=== PATIENT | female | born 1955 | race Caucasian/White ===

== ENCOUNTER → 2019-03-21 | Outpatient (CLI) | payer BC ==
--- NOTE | 2019-03-21 20:22 | CONS ---
CONSULTATION DATE OF SERVICE: 03/21/2019 63-year-old lady has been evaluated in [facility] for possible obstructive sleep apnea-hypopnea syndrome. HISTORY OF PRESENT ILLNESS SLEEP WAKE EVALUATION: The patient works at night 2 days on 2 days off. SLEEP SCHEDULE: Working days she sleeps from 8 a.m. until 3:30 pm and on days off, she sleeps from 11 p.m. until around 6 a.m. FALLING ASLEEP: Usually no problem with falling asleep. No TV in bedroom. DURING SLEEP: She sleeps on the side position presently by herself and wakes up from sleep up to 6 times with nocturia. DURING THE DAY/SLEEP WAKE EVALUATION: In the morning, she wakes up tired, has difficulties to pay attention, has problems with concentration, depression. [place] Sleepiness Scale is 8. PAST MEDICAL HISTORY: Positive for hypertension, diabetes, hyperlipidemia, allergies, acid reflux, low back arthritis, spinal stenosis. PAST SURGICAL HISTORY: Total hysterectomy, surgery for bladder CA, cholecystectomy, surgery on mass on left mastoid secondary to ear infection about 5 years ago. MEDICATIONS: Lantus, metformin, pravastatin, losartan, hydrochlorothiazide, levothyroxine, Claritin, multivitamins, Prilosec, glucosamine chondroitin, Motrin on p.r.n. basis. SOCIAL HISTORY: Positive for smoking about a 1 pack a day for 20 years, quit 20 years ago. Alcohol consumption none at the present time. FAMILY HISTORY: Hypertension, heart problems, hyperlipidemia, arthritis, cancer, emphysema, lung problems, bronchitis, thyroid problems, diabetes, acid reflux. REVIEW OF SYSTEMS: Multiple awakenings from sleep, sometimes tiredness and sleepiness during the day. Swelling of the legs. PHYSICAL EXAM: A pleasant lady without distress. BP 133/75, HR 89, RR 16, height 5 feet 5 inches, weight 273 pounds. Body mass index 45.4, temperature 98.1, oxygen saturation at room air 93%. OROPHARYNX: Extremely low position of soft palate. Mallampati 4. Wide neck 17-1/3 inches in circumference. Neck Supple, no JVD. Thyroid is not palpable. LUNGS Clear to percussion and to auscultation. Good air exchange. No wheezing or rhonchi. HEART S1, S2 regular. No murmurs, gallops, or rubs. ABDOMEN: Obese. Soft and nontender. Bowel sounds are present. No organomegaly appreciated. EXTREMITIES: 2+ bilateral ankle edema. No clubbing or cyanosis. SIPHON OPERATOR Awake, alert, and oriented X3. Cranial nerves 2 to 7 intact. There is no fasciculation or atrophy. noted. No focal deficits observed. IMPRESSION: 1. Multiple awakenings from sleep up to 6 times with nocturia. Extremely low position of soft palate. A wide neck, episodes of sleepiness, obstructive sleep apnea- hypopnea syndrome. 2. Obesity, body mass index 45.4. 3. Hypertension. 4. Diabetes mellitus. 5. Hyperlipidemia. 6. Allergies to dust and ragweed. 7. Acid reflux. 8. Low back arthritis. 9. History of spinal stenosis. 10.Status post total hysterectomy. 11.History of bladder CA treated surgically. 12.Status post cholecystectomy. 13.History of ear infection on the left side with surgical treatment including resection of mastoid about 5 years ago. 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 PLAN: 1. Polysomnography for evaluation of patient's breathing during sleep. 2. CPAP/BiPAP titration if sleep study confirms obstructive sleep apnea-hypopnea syndrome. 3. Preferable position during sleep on the side. 4. No driving if patient feels any sleepiness. 5. I will see patient for follow up visit to explain results of testing and following plan. Thank you very much for allowing me to participate in management of your patient. Sincerely, Rohan Simmons MD, PhD, FAASM Diplomat of [employer] Security Developer of [facility] [place] MMODL / TERESITAN: [id number] /
== END | disposition home or self-care (01) ==
LOC: SLEEP 13:41
PROVIDERS: ATTEND Internal Medicine
DX: G47.33 Obstructive sleep apnea (adult) (pediatric) (principal); E66.9 Obesity, unspecified; I10 Essential (primary) hypertension; E11.9 Type 2 diabetes mellitus without complications; E78.5 Hyperlipidemia, unspecified; K21.9 Gastro-esophageal reflux disease without esophagitis; M47.816 Spondylosis without myelopathy or radiculopathy, lumbar region; Z68.42 Body mass index [BMI] 45.0-49.9, adult; Z85.51 Personal history of malignant neoplasm of bladder; Z86.19 Personal history of other infectious and parasitic diseases; Z87.39 Personal history of other diseases of the musculoskeletal system and connective tissue; Z87.891 Personal history of nicotine dependence; Z90.710 Acquired absence of both cervix and uterus; Z90.49 Acquired absence of other specified parts of digestive tract; Z98.890 Other specified postprocedural states; Z79.4 Long term (current) use of insulin; Z79.899 Other long term (current) drug therapy; Z91.048 Other nonmedicinal substance allergy status
CPT/HCPCS: 99211

== ENCOUNTER → 2019-03-25 | Outpatient (CLI) | payer BC ==
--- NOTE | 2019-03-26 11:34 | BD ---
EXAMINATION TYPE: Axial Bone Density DATE OF EXAM: 03/25/2019 COMPARISON: NONE CLINICAL HISTORY: M 81.0 Height: 64.5 IN Weight: 270 LBD FRAX RISK QUESTIONS: Secondary Osteoporosis: 3. Menopause before 45: YES RISK FACTORS HISTORY OF: Family History of Osteoporosis: YES MOTHER Active: YES Postmenopausal woman: AGE 41 Take estrogen and/or progesterone medications: NOT NOW How long: TOOK CONTROL AGE 22-26 MEDICATIONS: Thyroid Medications: YES Which medication: Levothyroxine How Lon YEARS Additional Medications: PAIN MEDS FOR SPINAL STENOSIS,HIGH BLOOD PRESSURE, DIABETES MEDS, CHOLESTEROL MEDS, WATER PILL BLADDER CANCER WITH CHEMO EXAM MEASUREMENTS: Bone mineral densitometry was performed using the Burstly System. Bone mineral density as measured about the Lumbar spine is: ----- L1-L4(G/cm2): 1.275 T Score Values are as follows: ----- L2: 1.6 ----- L3: 1.1 ----- L4: 0.4 ----- L1-L4: 0.8 Bone mineral density BASELINE Bone mineral density about the R hip (g/cm2): 1.079 Bone mineral density about the L hip (g/cm2): 1.132 T Score values are as follows: -----R Neck: 0.3 -----L Neck: 0.7 -----R Total: 1.2 -----L Total: 0.9 Bone mineral density BASELINE IMPRESSION: Normal (Values between +1 and -1 indicate normal bone mass). Consider repeating this study in 5 year s or sooner if there is some new clinical indication. NOTE: T-SCORE=SD OF THE YOUNG ADULT MEAN.
--- NOTE | 2019-03-26 13:27 | MM ---
Reason for exam: screening (asymptomatic). Last mammogram was performed 3 years and 8 months ago. History: Patient is postmenopausal and has history of other cancer at age 53. Family history of breast cancer in maternal aunt. Took hormonal contraceptives for 3 years. Physical Findings: A clinical breast exam by your physician is recommended on an annual basis and results should be correlated with mammographic findings. MG 3D Screening Mammo W/Cad Bilateral CC and MLO view(s) were taken. Prior study comparison: July 16, 2015, mammogram. There are scattered fibroglandular densities. Benign appearing vascular bilateral calcifications. No suspicious abnormality. No significant changes when compared with prior studies. ASSESSMENT: Benign, BI-RAD 2 RECOMMENDATION: Routine screening mammogram of both breasts in 1 year.
== END | disposition home or self-care (01) ==
LOC: RADMAMWWP 15:22
PROVIDERS: ATTEND Family Medicine
DX: Z12.31 Encounter for screening mammogram for malignant neoplasm of breast (principal); M81.0 Age-related osteoporosis without current pathological fracture
CPT/HCPCS: 77063; 77067; 77080

== ENCOUNTER → 2019-08-01 | Outpatient (CLI) | payer BC ==
--- NOTE | 2019-08-01 19:49 | PN ---
PROGRESS NOTE DATE OF SERVICE: 08/01/2019 This patient is a 63-year-old lady who has been followed in the sleep center for treatment of obstructive sleep apnea-hypopnea syndrome. Recently the patient had a polysomnogram which showed severe sleep apnea and subsequent CPAP titration, when her respiration was improved. Subsequently I ordered for her a CPAP unit. Today is her first visit after starting to use her CPAP equipment. She was able to use CPAP equipment during the night. She sleeps better with the machine. She feels better during the day, but sometimes her mask is moving out. [place] Sleepiness Scale today is 2 only. I checked her CPAP unit. Range of the pressure is 5 to 12, average pressure 11.4. Leak is very high, 52. With that, apnea-hypopnea index is 6.1. MEDICATIONS: 1. Lantus. 2. Metformin. 3. Pravastatin. 4. Losartan/hydrochlorothiazide. 5. Levothyroxine. 6. Claritin. 7. Prilosec. 8. Glucosamine/chondroitin. 9. Multivitamin. 10.Motrin as needed. PHYSICAL EXAMINATION: GENERAL: A pleasant patient in no distress. VITAL SIGNS: BP 160/79, HR 86, RR 16, weight 288.6, temperature 97.4, oxygen saturation at room air 96%. HEENT: PERRLA, EOMI. Evaluation of oropharynx showed tongue protrudes midline. Extremely low position of soft palate. Mallampati IV. NECK: Supple. No JVD. Thyroid is not palpable. LUNGS: Clear to percussion and to auscultation. Good air exchange. No wheezing or rhonchi. HEART: S1, S2 regular. No murmurs, gallops or rubs. ABDOMEN: Slightly obese. EXTREMITIES: No clubbing or cyanosis. ANCHOR TACKER: Awake, alert, and oriented X3. Cranial nerves 2 to 7 intact. There is no fasciculation or atrophy. noted. No focal deficits observed. IMPRESSION: 1. Severe obstructive sleep apnea-hypopnea syndrome; apnea-hypopnea index 44.1 with oxygen desaturation to extremely low level at 63.6%. Patient has demonstrated great compliance with treatment, benefitting from treatment. Apnea-hypopnea index is slightly above 5. 2. Obesity. 3. Hypertension. 4. Diabetes mellitus. 5. Hyperlipidemia. 6. Multiple allergies. 7. Acid reflux. 8. Low back arthritis. 9. History of spinal stenosis. 10.Status post total hysterectomy. 11.History of bladder carcinoma, treated surgically. 12.Status post cholecystectomy. 13.History of ear infection with treatment, including infection of mastoid about 5 years ago. 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 PLAN: 1. Patient will continue to use CPAP equipment every night for the whole night. 2. I will increase the maximal range of pressure to 13. 3. Will try to use a chin strap. I believe the patient may have more leaks when she starts to open her mouth during sleep. 4. Losing weight. 5. No driving if feeling any sleepiness. Thank you very much for allowing me to participate in the management of your patient. Sincerely, Rohan Simmons MD, PhD, FAASM Diplomat of [employer] District Administrator of [facility] [place] MMODL / IJN: [id number] /
== END | disposition home or self-care (01) ==
LOC: SLEEP 15:21
PROVIDERS: ATTEND Internal Medicine
DX: G47.33 Obstructive sleep apnea (adult) (pediatric) (principal); E66.9 Obesity, unspecified; I10 Essential (primary) hypertension; E11.9 Type 2 diabetes mellitus without complications; E78.5 Hyperlipidemia, unspecified; T78.49XA Other allergy, initial encounter; K21.9 Gastro-esophageal reflux disease without esophagitis; M19.90 Unspecified osteoarthritis, unspecified site; Z86.69 Personal history of other diseases of the nervous system and sense organs; Z90.710 Acquired absence of both cervix and uterus; Z85.51 Personal history of malignant neoplasm of bladder; Z98.890 Other specified postprocedural states; Z90.49 Acquired absence of other specified parts of digestive tract; Z99.89 Dependence on other enabling machines and devices; Z79.4 Long term (current) use of insulin; Z79.890 Hormone replacement therapy; Z79.1 Long term (current) use of non-steroidal anti-inflammatories (NSAID); Z79.899 Other long term (current) drug therapy

== ENCOUNTER → 2019-10-17 | Outpatient (CLI) | payer MEDICARE, OTHER ==
--- NOTE | 2019-10-17 15:57 | PN ---
PROGRESS NOTE DATE OF SERVICE: 10/17/2019 This patient is a 64-year-old lady who has been followed in Sleep Center for treatment of obstructive sleep apnea-hypopnea syndrome. Patient continues to use her CPAP equipment every night. Sometimes she still has a leak from her mask. Otherwise, she sleeps well with the machine. No snoring. [place] Sleepiness Scale today is 4. I checked her CPAP unit. Range of the pressure is 5 to 13, average pressure 12 cm of water. Usage for the last month is 30/30 nights and 26/30 nights for more than 4 hours with average usage 5.8 hours per night, which is good compliance. Leak is quite high at 55 L/minute. Apnea-hypopnea index is 5.9, which is practically normal. MEDICATIONS: Lantus, metformin, losartan/hydrochlorothiazide, pravastatin, levothyroxine, Claritin, Prilosec, glucosamine, glucosamine/chondroitin, multivitamins, Motrin if needed. PHYSICAL EXAMINATION: GENERAL: A pleasant patient in no distress. VITAL SIGNS: BP 148/82, HR 86, RR 16. Height 5 feet 5 inches, weight 286 pounds, which is 2 pounds less than during last visit. Body mass index 47.7. Temperature 97.8, oxygen saturation at room air 96%. HEENT: PERRLA, EOMI. Evaluation of oropharynx showed tongue protrudes midline. Extremely low position of soft palate. Mallampati IV. NECK: Supple. No JVD. Thyroid is not palpable. LUNGS: Clear to percussion and to auscultation. Good air exchange. No wheezing or rhonchi. HEART: S1, S2 regular. No murmurs, gallops or rubs. ABDOMEN: Obese. EXTREMITIES: No clubbing or cyanosis. BULL RIDER: Awake, alert, and oriented X3. Cranial nerves 2 to 7 intact. There is no fasciculation or atrophy. noted. No focal deficits observed. IMPRESSION: 1. Severe obstructive sleep apnea-hypopnea syndrome. The patient demonstrated great compliance with treatment, benefitting from treatment. 2. Hypertension. 3. Obesity. 4. Diabetes mellitus. 5. Hyperlipidemia. 6. Multiple allergies. 7. Acid reflux. 8. Arthritis. 9. History of spinal stenosis. 10.Status post total hysterectomy. 11.History of bladder carcinoma, treated surgically. 12.Status post cholecystectomy. 13.History of ear infection, including infection of mastoid 5 years ago. 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 PLAN: 1. Patient will continue to use CPAP equipment every night for the whole night. 2. Losing weight. 3. Sleep hygiene with regular time in bed for at least 7-1/2 hours. 4. No driving if feeling any sleepiness. 5. I will maintain all necessary prescriptions for CPAP supplies, including mask, tube, filters. Thank you very much for allowing me to participate in the management of your patient. Sincerely, Rohan Simmons MD, PhD, FAASM Diplomat of [place] [employer] [place] [employer] Set Illustrator of [facility] [place] MMODL / IJN: [id number] /
== END | disposition home or self-care (01) ==
LOC: SLEEP 14:23
PROVIDERS: ATTEND Internal Medicine
DX: G47.33 Obstructive sleep apnea (adult) (pediatric) (principal); I10 Essential (primary) hypertension; E66.9 Obesity, unspecified; E11.9 Type 2 diabetes mellitus without complications; E78.5 Hyperlipidemia, unspecified; T78.49XA Other allergy, initial encounter; K21.9 Gastro-esophageal reflux disease without esophagitis; M19.90 Unspecified osteoarthritis, unspecified site; Z68.42 Body mass index [BMI] 45.0-49.9, adult; Z86.69 Personal history of other diseases of the nervous system and sense organs; Z90.710 Acquired absence of both cervix and uterus; Z85.51 Personal history of malignant neoplasm of bladder; Z98.890 Other specified postprocedural states; Z90.49 Acquired absence of other specified parts of digestive tract; Z99.89 Dependence on other enabling machines and devices; Z79.4 Long term (current) use of insulin; Z79.890 Hormone replacement therapy; Z79.1 Long term (current) use of non-steroidal anti-inflammatories (NSAID); Z79.899 Other long term (current) drug therapy

== ENCOUNTER → 2020-05-06 | Outpatient (CLI) | payer MEDICARE ==
--- NOTE | 2020-05-06 12:38 | XR ---
EXAMINATION TYPE: XR chest 2V DATE OF EXAM: 05/06/2020 COMPARISON: NONE HISTORY: Presurgical study. TECHNIQUE: Frontal and lateral views of the chest are obtained. FINDINGS: There is no focal air space opacity, pleural effusion, or pneumothorax seen. The cardiac silhouette size is mildly enlarged. The osseous structures are intact. Cholecystectomy clips noted on lateral view. Overlying bra strap. IMPRESSION: Mild cardiomegaly without acute pulmonary process.
[2020-05-06 13:55] LABS: Basophils # (A) 0.1 k/uL (0-0.2); Basophils % (A) 1 %; Eosinophils # (A) 0.2 k/uL (0-0.7); Eosinophils % (A) 2 %; HCT 40.6 % (34.0-46.0); HGB 12.7 gm/dL (11.4-16.0); Lymphocytes # (A) 2.3 k/uL (1.0-4.8); Lymphocytes % (A) 22 %; MCH 26.4 pg (25.0-35.0); MCHC 31.2 g/dL (31.0-37.0); MCV 84.5 fL (80.0-100.0); Monocytes # (A) 0.5 k/uL (0-1.0); Monocytes % (A) 5 %; Neutrophils # (A) 7.2 k/uL (1.3-7.7); Neutrophils % (A) 69 %; Platelet Count 228 k/uL (150-450); RBC 4.81 m/uL (3.80-5.40); RDW 14.9 % (11.5-15.5); WBC 10.5 k/uL (3.8-10.6)
[2020-05-06 14:04] LABS: African American GFR (CKD) >90 (>60 ml/min/1.73 sqM); Anion Gap 10 mmol/L; Blood Urea Nitrogen 15 mg/dL (7-17); Carbon Dioxide 29 mmol/L (22-30); Chloride 100 mmol/L (98-107); Glucose 158 mg/dL (74-99); Non-African American GFR(CKD) >90 (>60 ml/min/1.73 sqM); Sodium 139 mmol/L (137-145)
[2020-05-06 14:15] LABS: Appearance,Urine Clear (Clear); Bilirubin,Urine Negative (Negative); Blood,Urine Negative (Negative); Color,Urine Light Yellow; Glucose,Urine (UA) Negative (Negative); Ketones,Urine Negative (Negative); Leukocyte Esterase,Urine Negative (Negative); Nitrite,Urine Negative (Negative); Protein,Urine Negative (Negative); Specific Gravity,Urine 1.006 (1.001-1.035); Urobilinogen,Urine <2.0 mg/dL (<2.0)
[2020-05-06 14:38] LABS: INR 0.9 (<1.2); Prothrombin Time 9.7 sec (9.0-12.0)
== END | disposition home or self-care (01) ==
LOC: LABPAT 12:09
PROVIDERS: ATTEND Orthopaedic Surgery Orthopaedic Surgery of the Spine
DX: Z01.818 Encounter for other preprocedural examination (principal); M50.01 Cervical disc disorder with myelopathy, high cervical region; I51.7 Cardiomegaly
CPT/HCPCS: 71046; 80048; 81003; 85025; 85610; 85730; 93005

== ENCOUNTER 2020-05-13 08:37 | Observation (INO) | payer MEDICARE ==
[2020-05-07 11:22] VITALS: BMI 46.7
[~2020-05-13 08:37] MED LIST: DEXAMETHASONE SOD PHOSPHATE 10 MG/ML 1 ML VIAL IV ONE; HYDROmorphone 0.5 MG/0.5 ML SYRINGE IVP PRN; MIDAZOLAM 2 MG/2 ML VIAL IV PRN; ONDANSETRON 4 MG/2 ML VIAL IVP ONE; ceFAZolin 1,000 MG in SODIUM CHLORIDE 0.9% IRRIGATIO 1,000 ML IRRIGATION ONE; ceFAZolin 3 GM in SODIUM CHLORIDE 0.9% 100 ML IVPB ONE
[2020-05-13] MEDS ORDERED: ONDANSETRON 4 MG/2 ML VIAL ONE (09:01)
[2020-05-13 09:13] LABS: Glucose,Whole Blood 199 mg/dL (75-99)
[2020-05-13] MEDS: LACTATED RINGERS 1,000 ML IV SCH (09:17)
[2020-05-13] MEDS ORDERED: WATER FOR INJECTION, STERILE 10 ML VIAL IV ONE (10:17)
[2020-05-13] MEDS ORDERED: HYDROmorphone (PF) 1 MG/ML ONE (10:17)
[2020-05-13] MEDS ORDERED: DEXAMETHASONE SOD PHOSPHATE 10 MG/ML 1 ML VIAL ONE (10:17)
[2020-05-13] MEDS ORDERED: ePHEDrine SULFATE/0.9% NACL/PF 50 MG/5 ML SYRINGE IV ONE (10:17)
[2020-05-13] MEDS ORDERED: MIDAZOLAM 2 MG/2 ML VIAL ONE (10:17)
[2020-05-13] MEDS ORDERED: fentaNYL (PF) 50 MCG/ML 2 ML AMP ONE (10:17)
[2020-05-13] MEDS ORDERED: SUCCINYLCHOLINE CHLORIDE 100 MG/5 ML SYR IV ONE (10:17)
[2020-05-13] MEDS ORDERED: PROPOFOL 10 MG/ML 20 ML VIAL IV ONE (10:17)
[2020-05-13] MEDS ORDERED: LABETALOL 5 MG/ML VIAL MDV ONE (10:17)
[2020-05-13] MEDS ORDERED: LIDOCAINE 1% INJ 10MG/ML (20 ML MDV) ONE (10:17)
[2020-05-13] MEDS ORDERED: GELATIN SPONGE,ABSORB (LARGE) 1 EACH SPONGE TOPICAL ONE (10:27)
[2020-05-13] MEDS ORDERED: LIDOCAINE 0.5%-EPI 1:200,000 50 ML VIAL SQ ONE (10:27)
[2020-05-13] MEDS ORDERED: THROMBIN (BOVINE) 5,000 UNIT VIAL TOPICAL ONE (10:27)
[2020-05-13] MEDS ORDERED: LACTATED RINGERS 1,000 ML IV ONE (11:43)
[2020-05-13] MEDS ORDERED: HYDROmorphone 1 MG/ML 1 ML SYRINGE IVP PRN (12:59)
[2020-05-13] MEDS ORDERED: HYDROmorphone 0.5 MG/0.5 ML SYRINGE IVP PRN (12:59)
[2020-05-13] MEDS ORDERED: BENZOCAINE/MENTHOL LOZENG 1 EACH LOZENGE MUCOUS MEM PRN (12:59)
[2020-05-13] MEDS ORDERED: ONDANSETRON 4 MG/2 ML VIAL IVP PRN (13:00)
[2020-05-13] MEDS ORDERED: ACETAMINOPHEN TAB 325 MG TAB PO PRN (13:00)
--- NOTE | 2020-05-13 13:07 | P.OP ---
Date of Procedure: 05/13/20 Preoperative Diagnosis: Cervical myelopathy, myelomalacia cervical spine, herniated nucleus pulposis C4 5 C5 6 C6 7, cervical stenosis C4 5 C5 6 C6 7, degenerative disc disease, neck pain, upper extremity neuropathy, upper extremity weakness Postoperative Diagnosis: same Anesthesia: GETA Pathology: none sent Condition: stable Disposition: PACU Description of Procedure: BRIEF OPERATIVE NOTE Preoperative Diagnosis:Cervical myelopathy, myelomalacia cervical spine, herniated nucleus pulposis C4 5 C5 6 C6 7, cervical stenosis C4 5 C5 6 C6 7, degenerative disc disease, neck pain, upper extremity neuropathy, upper extremity weakness Postoperative Diagnosis:Cervical myelopathy, myelomalacia cervical spine, herniated nucleus pulposis C4 5 C5 6 C6 7, cervical stenosis C4 5 C5 6 C6 7, degenerative disc disease, neck pain, upper extremity neuropathy, upper extremity weakness Procedure: Anterior cervical decompression with discectomy and fusionC4 5 C5 6 C6 7 Placement of interbody graftC4 5 C5 6 C6 7 Application of anterior cervical plateC4 5 C5 6 C6 7 Surgeon: Dr. Potts Pallet Assembler: Tad Portillo is present throughout the entire the case persistence during positioning, dissection, exposure, visualization, and all crucial elements of the case as well as closure. Anesthesia: General anesthesia Estimated blood loss:proximately 75 mL Complications: None apparent Components implanted:K2M [place] anterior cervical plate system with screws and Vikos interbody allograft bone graft with 1 mL of DBX bone putty to supplemental bone graft Disposition: To recovery room in good stable condition. OPERATIVE INDICATIONS The patient has had long-standing issues in their neck and upper extremities. the patient has been having severe worsening of her symptoms over the past few months. Patient was found have severe cervical stenosis and evidence of myelomalacia and myelopathy. The patient has been through conservative treatment. the patient was having worsening her symptoms despite conservative care and we felt that surgery would give her the best option to stop the progression of her myelopathy and if her chance of making improvement with her neurologic function. We discussed various treatment options including surgery, and the patient wishes to proceed with surgery We discussed the risk, patient's alternatives and benefits of surgery including but not limited to, risk of bleeding risk of infection, risk of need for further surgery, risk of decreased, loss of motion, muscle function, malunion nonunion, hardware failure, nerve damage, paralysis, heart attack, and . OPERATIVE SUMMARY After discussing all the risks, patient alternatives and benefits at length, the patient elected to proceed with surgical intervention, signed informed consent, and presented for their procedure. The patient was seen and examined in the preoperative holding area and the surgical site was marked. The patient was given antibiotics and brought to the operating room. The patient was positioned on the operating room table in a supine position being careful to pad any bony prominences and pressure points. The patient was sedated and intubated by anesthesia in standard fashion. Once the airway and C- spine were stabilized the patient's arms were padded and tucked at her side, with her shoulders gently taped. The head was placed in a donut pad with the neck in good neutral alignment and position. We were careful to maintain the patient's cervical spine and good neutral alignment and position throughout. The patient was prepped and draped in a normal standard fashion. An appropriate timeout and keystone protocol performed. We were able to proceed with the surgery. The local wound area was infiltrated with local anesthetic. An incision was made transversely approximately 2-1/2 cm over the appropriate levelsat C5 6. Dissection was taken down subcutaneously to the level of the platysma which was split in line with its fibers. Dissection was taken with a carotid approach, with the trachea and esophagus medial and the carotid sheath laterally. We dissected down to the anterior surface of the vertebral bodies. Intraoperative x-ray was taken which showed a marker at the appropriate levelat C4 5. With the appropriate level positively confirmed, we were able to proceed with discectomy at the appropriate levels. starting at C4 5 and exposing C5 6 and C6 7.All of the operative levels were exposed appropriately. The patient had all their twitches back, and there was no evidence of recurrent laryngeal issue. The wound was copiously irrigated and suctioned dry as had been done periodically throughout the case. At the appropriate level/levels, starting at C4 5 and then removing the C5 6 and then to C6 7, I established an annulotomy with an 11 blade scalpel. A discectomy was performed with a combination of pituitary rongeurs, curettes, a high-speed bur, and Kerrison rongeurs. The posterior longitudinal ligament was taken down as were any posterior osteophytes. This gave good central and bilateral foraminal decompression. note was made at each level with significant disc degeneration disc protrusion posteriorly. I was able to take this down and get good central and bilateral foraminal decompression.There is no evidence of any dural tear or leak. The endplates were prepared with a high-speed bur. With the endplates in good parallel position, I was able to size for the appropriate size interbody graft. The wound was irrigated and suctioned dry the graft was prepared and malleted into position. It had good alignment and position with the anterior surface flush with the anterior surface of the vertebral bodies. This was done similarly the appropriate levels. With the grafts intact, I was able to measure and contour and appropriate sized plate. The plate was positioned at the midline over the appropriate levelsat C4 5 6 and 7. Screw holes were established with a hand drill and drill guide. Screws were placed in good alignment and position with excellent bony purchase. They were seated under the locking device. The construct was checked and found to be stable. Intraoperative x-ray was taken which showed good alignment and position of the implants at the appropriate levels. There was no evidence of any dural tear or leak. Good hemostasis was maintained. The wound was copiously irrigated and suctioned dry as had been done periodically throughout the case. The platysma was closed with absorbable suture. The subcutaneous tissue was closed. The subcuticular tissue was closed with absorbable suture. The wound was cleaned and dried and dressed appropriately. A soft cervical collar was placed appropriately. The patient was woken up by anesthesia, extubated, transferred back gently to their hospital bed and brought to the recovery room in good stable condition. The patient will be admitted to the hospital for appropriate postoperative care, medical management and monitoring. We will continue to follow them closely about the postoperative course.
[2020-05-13 13:33] LABS: Glucose,Whole Blood 178 mg/dL (75-99)
--- NOTE | 2020-05-13 13:51 | XR ---
Cervical spine HISTORY: Needle placement Single lateral view the cervical spine There is a needle present within the C4-5 disc space, is associated loss of disc height and spondylos is. Endotracheal tube noted incidentally. IMPRESSION: Orthopedic localization
--- NOTE | 2020-05-13 14:14 | XR ---
Cervical spine HISTORY: Hardware placement Single lateral view of the cervical spine Patient is status post anterior cervical discectomy and fusion at C4-C7, intervertebral spacing block s are present. Lower cervical spine not well seen. Alignment appears stable as visualized. IMPRESSION: Orthopedic follow-up.
[2020-05-13] MEDS: SODIUM CHLORIDE 0.9% 1,000 ML IV SCH (15:56)
[2020-05-13] MEDS: HYDROcodone/APAP 5-325MG 1 EACH TAB PO PRN (16:22)
[2020-05-13 17:08] LABS: Glucose,Whole Blood 250 mg/dL (75-99)
[2020-05-13] MEDS: ceFAZolin 3 GM in SODIUM CHLORIDE 0.9% 100 ML IVPB SCH (17:38)
[2020-05-13] MEDS: metFORMIN 500 MG TAB PO SCH (17:38)
[2020-05-13] MEDS: INSULIN ASPART (NovoLOG) 100 UNIT/ML VIAL SQ SCH ×2 (17:38→21:36)
[2020-05-13] MEDS: SYMBICORT 80-4.5 MCG INHALER INHALATION SCH (20:34)
[2020-05-13 20:47] LABS: Glucose,Whole Blood 282 mg/dL (75-99)
[2020-05-13] MEDS: INSULIN DETEMIR (LEVEMIR) 100 UNIT/ML SYR SQ SCH (21:35)
[2020-05-13] MEDS: guaiFENesin 600 MG TABLET.ER PO SCH (21:39)
--- NOTE | 2020-05-13 22:01 | P.CONS ---
History of Present Illness - Reason for Consult Consult date: 05/13/20 Medical management Requesting physician: Radha Potts - Chief Complaint Anterior decompression and fusion of the C4/5/6/7, type 2 diabetes, hyperte - History of Present Illness 64-year-old female one of Dr. Napier patient with past medical history of mild COPD, hypertension, hyperlipidemia, history of bladder cancer and known to have history of severe spinal stenosis. Patient apparently has been having worsening balance and gait with multiple fall significant pain and discomfort in the neck area along with weakness in the right arm. Patient was seen Dr. Echavarria physiatry further workup including x-ray of the lumbar spine and MRI of the C-spine showed severe spinal stenosis of the cervical spine. Patient was referred to Dr. Potts and ended up going for anterior decompression and fusion of for cervical spine vertebrae. Surgery was successful, patient was admitted to the floor afterward her home meds were started patient is hemodynamically stable and feeling well pain is under control. Review of Systems CONSTITUTIONAL: Well-developed no acute respiratory distress. EYES: No icterus sclerae, no conjunctivitis. EARS, NOSE, MOUTH, THROAT, and FACE: No sore throat, lymphadenopathy, carotid bruits or deformity. RESPIRATORY: Mild shortness of breath no cough or wheezes. CARDIOVASCULAR: No CP or Palpitation, + PND, Orthopnea, no angina. GASTROINTESTINAL: No Abd pain, Nausea or vomiting, no Diarrhea or constipation, No GI Bleed, no distention or masses. GENITOURINARY: Negative for Hematuria or UTI, no kidney stones. INTEGUMENT/BREAST: Negative for any muscular injury with mild osteoarthritis.. HEMATOLOGIC/LYMPHATIC: Negative for bleed or purpura. MUSCULOSKELTAL: Generalized myalgia and arthralgia. NEURLOGICAL: No LOC, Sz or syncope, blurred vision dizziness or abnormality. Positive mild abnormal gait. BEHAVIORAL/PSYCH: Negative. ENDOCRINE: Negative. Past Medical History Past Medical History: Cancer, Diabetes Mellitus, GERD/Reflux, Hearing Disorder / Deafness, Hyperlipidemia, Hypertension, Osteoarthritis (OA), Sleep Apnea/CPAP/BIPAP, Thyroid Disorder Additional Past Medical History / Comment(s): states had shingles end of March 2020, lower back, hip, states "cleared up now" no current skin issues, hx bladder cancer, had tumors removed, and "chemo wash" hx. kidney stones, liver lesion-dr. monitoring, bulging discs, SOB w/activity, seasonal allergies, minimal hearing left ear, N/T tiffany legs, "legs give out", tiffany legs edema. History of Any Multi-Drug Resistant Organisms: MRSA Year Discovered:: 07/15/16 MDRO Source:: left ear Past Surgical History: Appendectomy, Cholecystectomy, Ear Surgery, Hysterectomy Additional Past Surgical History / Comment(s): cystoscopy, surg. on left mastoid due to infection, tubes in ears, anterior decompression and fusion of C4/5/6/7 Past Anesthesia/Blood Transfusion Reactions: Previous Problems w/ Anesthesia Additional Past Anesthesia/Blood Transfusion Reaction / Comm: combative w/anesthesia in past, has had trouble waking up in past Past Psychological History: No Psychological Hx Reported Smoking Status: Former smoker Past Alcohol Use History: None Reported Additional Past Alcohol Use History / Comment(s): quit smoking more than 20 yrs. ago, smoked 1ppd for 20 yrs. Past Drug Use History: None Reported - Past Family History Brother(s) Family Medical History: Cancer Additional Family Medical History / Comment(s): one brother lung, 2 brothers prostate Father Family Medical History: Cancer Additional Family Medical History / Comment(s): prostate Medications and Allergies Home Medications Medication Instructions Recorded Confirmed Type Insulin Glargine [Lantus] 65 unit SQ BID 03/07/16 05/13/20 History Levothyroxine Sodium [Synthroid] 150 mcg PO DAILY 03/07/16 05/13/20 History Multivit with Calcium,Iron,Min 1 each PO DAILY 03/07/16 05/13/20 History [Women's Daily Multivitamin] Pravastatin Sodium [Pravachol] 20 mg PO DAILY 03/07/16 05/13/20 History metFORMIN HCL [Glucophage] 1,000 mg PO BID 03/07/16 05/13/20 History Aspirin [[place] Aspirin EC] 81 mg PO DAILY 05/07/20 05/13/20 History Ergocalciferol [Vitamin D2] 50,000 unit PO COLLAZO 05/07/20 05/13/20 History Fluticasone/Salmeterol [Advair 1 inhalation PO BID 05/07/20 05/13/20 History 250-50 Diskus] Furosemide [Lasix] 20 mg PO DAILY 05/07/20 05/13/20 History Ibuprofen 800 mg PO BID 05/07/20 05/13/20 History Loratadine [Claritin] 10 mg PO DAILY 05/07/20 05/13/20 History Losartan/Hydrochlorothiazide 1 tab PO DAILY 05/07/20 05/13/20 History [Losartan-Hctz 100-25 mg Tab] Omeprazole [PriLOSEC] 20 mg PO DAILY 05/07/20 05/13/20 History amLODIPine [Norvasc] 5 mg PO QAM 05/07/20 05/13/20 History guaiFENesin [Mucinex] 600 mg PO BID 05/07/20 05/13/20 History Allergies Allergy/AdvReac Type Severity Reaction Status Date / Time Sulfa (Sulfonamide Allergy Rash/Hives Verified 05/13/20 09:01 Antibiotics) erythromycin base AdvReac "spacey" Verified 05/13/20 09:01 Physical Exam Vitals: Vital Signs Temp Pulse Pulse Resp BP BP Pulse Ox 05/13/20 17:30 78 123/68 05/13/20 15:30 96.9 F L 80 18 163/75 96 05/13/20 14:50 78 18 155/70 94 L 05/13/20 14:35 75 18 155/73 100 05/13/20 14:20 74 18 171/100 99 05/13/20 14:05 74 16 138/63 100 05/13/20 13:50 74 16 130/55 94 L 05/13/20 13:35 70 18 125/51 94 L 05/13/20 13:24 97 F L 71 16 147/65 91 L 05/13/20 08:55 97 F L 91 16 192/76 98 Intake and Output 05/13/20 05/13/20 05/13/20 06:59 14:59 22:59 Intake Total 1501 300 Output Total 175 Balance 1326 300 Intake: IV 1501 300 Output: Urine 100 Estimated Blood Loss 75 Other: Weight 132.1 kg General Appearance: Alert, cooperative, no distress, appears stated age. Neck HEENT: no lymphadenopathy, no thyroid enlargement, no carotid bruits. Cervical spine surgery in the right sided anterior approach no sign of bleeding or hematoma no swelling Lungs: Clear to auscultation without crackles or wheezes no rhonchi, no deformity. Chest Wall: Chest wall normal expansion with deep inspiration no tenderness and no deformity was found on exam, no costochondral pain or discomfort. Heart: Regular rate and rhythm, S1, S2 normal, no murmur, rub or gallop. Back: Symmetric, no curvature, ROM normal, no CVA tenderness. Abdomen: Soft, non-tender, bowel sounds active all four quadrants, no masses, no organomegaly. Extremities: normal, atraumatic, no cyanosis or edema. Pulses: 2+ and symmetric. Skin: Skin color, texture, tugor normal, no rashes or lesions. Neurologic: Alert oriented x3 cranial nerves II through XII intact, no motor d eficit, no abnormal balance or gait. Results Labs: Abnormal Lab Results - Last 24 Hours (Table) 05/13/20 05/13/20 05/13/20 Range/Units 09:10 13:31 17:06 POC Glucose (mg/dL) 199 H 178 H 250 H (75-99) mg/dL Assessment and Plan Assessment: 1 post anterior C-spine decompression and fusion: Stable post surgery resume home meds, watch patient hemodynamic status, we'll control patient's pain. 2 type 2 diabetes: Continue Accu-Chek with sliding scales coverage, continue patient on Lantus 65 units twice a day along with Glucophage 1000 mg twice a day. 3 hypertension: Remain on Norvasc 5 mg a day, losartan hydrochlorothiazide 100/25 mg daily. 4 hyperlipidemia: On Pravachol 20 mg a day. 5 hypothyroidism: Resume levothyroxine 150 g daily. 6 mild COPD: Remain on rescue inhaler along with Advair 250/50 Diskus 1 inhaler twice a day. 7 chronic edema: Remain on Lasix 20 mg a day. 8 pain management: Remain on Dilaudid 1 mg every 4 hours as needed 9 GI prophylaxis: Continue patient on pantoprazole 40 mg a day. CODE STATUS: Full code. Dr. Potts thank you very much for the consult if I can be any further help to please let me know.
[2020-05-14] MEDS: ceFAZolin 3 GM in SODIUM CHLORIDE 0.9% 100 ML IVPB SCH (01:33)
[2020-05-14 05:01] VITALS: BP 132/68; RESP 18; TEMP 98.6
[2020-05-14] MEDS: HYDROcodone/APAP 5-325MG 1 EACH TAB PO PRN (05:07)
[2020-05-14] MEDS: SODIUM CHLORIDE 0.9% 1,000 ML IV SCH (05:08)
[2020-05-14] MEDS ORDERED: LEVOTHYROXINE 75 MCG TAB PO SCH (06:30)
[2020-05-14 07:04] LABS: Glucose,Whole Blood 130 mg/dL (75-99)
[2020-05-14] MEDS: SYMBICORT 80-4.5 MCG INHALER INHALATION SCH (07:24)
[2020-05-14] MEDS ORDERED: PANTOPRAZOLE 40 MG TABLET PO SCH (07:30)
[2020-05-14] MEDS: INSULIN ASPART (NovoLOG) 100 UNIT/ML VIAL SQ SCH ×2 (07:56→12:59)
[2020-05-14] MEDS: LACTATED RINGERS 1,000 ML IV SCH (07:57)
[2020-05-14] MEDS: INSULIN DETEMIR (LEVEMIR) 100 UNIT/ML SYR SQ SCH (07:58)
[2020-05-14] MEDS: metFORMIN 500 MG TAB PO SCH (07:59)
[2020-05-14] MEDS: guaiFENesin 600 MG TABLET.ER PO SCH (07:59)
[2020-05-14] MEDS ORDERED: amLODIPine 5 MG TAB PO SCH (09:00)
[2020-05-14] MEDS ORDERED: LOSARTAN-HCTZ 50-12.5 MG 1 EACH TAB PO SCH (09:00)
[2020-05-14] MEDS ORDERED: ASPIRIN 81 MG PO SCH (09:00)
[2020-05-14] MEDS ORDERED: FUROSEMIDE 20 MG TAB PO SCH (09:00)
[2020-05-14] MEDS ORDERED: SENNOSIDES-DOCUSATE SODIUM 1 EACH TAB PO SCH ×2 (09:00)
[2020-05-14] MEDS ORDERED: PRAVASTATIN SODIUM 20 MG TAB PO SCH (09:00)
[2020-05-14] MEDS ORDERED: MULTIVITAMINS, THERA 1 EACH TAB PO SCH (09:00)
[2020-05-14] MEDS ORDERED: LORATADINE 10 MG TAB PO SCH (09:00)
--- NOTE | 2020-05-14 09:56 | P.DS ---
Providers Date of admission: 05/13/20 23:22 Attending physician: Radha Potts Primary care physician: [facility] Course: The patient presented on the day of admission as per their operative note. She is a history of cervical myelopathy and severe cervical stenosis for which the underwent anterior cervical decompression with discectomy and fusion as per operative note. She says her hands are feeling better and she has been able to walk around better to 70 well. She still needing some a little bit of assistance when she walks around to hold onto furniture or her IV pole. Physical Exam The incision site is clean dry and intact. There is no erythema no drainage. There is no purulence no evidence of infection. She has some mild swelling and mild ecchymosis without any pressure. Her neck is soft and supple. Abdomen soft and nontender. Chest has good excursion with deep inspiration and expiration. The patient has active and passive range of motion intact at the upper and lower extremities. There is no acute change in neurologic status. She has good motion in her hands and fingers. Hospital Course Postoperative day #1 status post anterior cervical decompression with discectomy and fusion at C45 C5 6 C6 7 for her severe cervical stenosis with cervical myelopathy. Thus far she has been happy with results. She is able to tolerate soft diet and she is ambulating inside the room. She's voided and has had a bowel movement. The patient has been making good progress postoperatively. They have completed the prophylactic antibiotics without any signs or symptoms of infection. The patient has been able to advance their diet, and is tolerating diet adequately. The pain was initially controlled with IV medications and is now controlled appropriately with oral medications. The patient has been able to increase thei r mobilization. The patient has progressed appropriately. I think they are in good stable condition for discharge today. They will be sent home with appropriate prescriptions. I answered their questions to the best of my ability in a language that they can understand and they are agreeable with the plan. They will follow up as directed in approximately 2 weeks or sooner if she is having problems. Patient Condition at Discharge: Good Plan - Discharge Summary Discharge Rx Participant: No New Discharge Prescriptions: New Benzocaine/Menthol Lozeng [Cepacol lozenge] 1 each MUCOUS MEM Q4HR PRN lozenge PRN Reason: Sore Throat HYDROcodone/APAP 5-325MG [[place] 5] 1 each PO Q4HR PRN #42 tab PRN Reason: Pain Continue Levothyroxine Sodium [Synthroid] 150 mcg PO DAILY metFORMIN HCL [Glucophage] 1,000 mg PO BID Pravastatin Sodium [Pravachol] 20 mg PO DAILY Insulin Glargine [Lantus] 65 unit SQ BID Multivit with Calcium,Iron,Min [Women's Daily Multivitamin] 1 each PO DAILY Furosemide [Lasix] 20 mg PO DAILY Ergocalciferol [Vitamin D2 (DRISDOL)] 50,000 unit PO COLLAZO amLODIPine [Norvasc] 5 mg PO QAM Loratadine [Claritin] 10 mg PO DAILY Fluticasone/Salmeterol [Advair 250-50 Diskus] 1 inhalation PO BID guaiFENesin [Mucinex] 600 mg PO BID Omeprazole [PriLOSEC] 20 mg PO DAILY Losartan/Hydrochlorothiazide [Losartan-Hctz 100-25 mg Tab] 1 tab PO DAILY Ibuprofen 800 mg PO BID Aspirin [[place] Aspirin EC] 81 mg PO DAILY Discharge Medication List Insulin Glargine [Lantus] 65 unit SQ BID 03/07/16 [History] Levothyroxine Sodium [Synthroid] 150 mcg PO DAILY 03/07/16 [History] Multivit with Calcium,Iron,Min [Women's Daily Multivitamin] 1 each PO DAILY 03/07/16 [History] Pravastatin Sodium [Pravachol] 20 mg PO DAILY 03/07/16 [History] metFORMIN HCL [Glucophage] 1,000 mg PO BID 03/07/16 [History] Aspirin [[place] Aspirin EC] 81 mg PO DAILY 05/07/20 [History] Ergocalciferol [Vitamin D2 (DRISDOL)] 50,000 unit PO COLLAZO 05/07/20 [History] Fluticasone/Salmeterol [Advair 250-50 Diskus] 1 inhalation PO BID 05/07/20 [History] Furosemide [Lasix] 20 mg PO DAILY 05/07/20 [History] Ibuprofen 800 mg PO BID 05/07/20 [History] Loratadine [Claritin] 10 mg PO DAILY 05/07/20 [History] Losartan/Hydrochlorothiazide [Losartan-Hctz 100-25 mg Tab] 1 tab PO DAILY 05/07/20 [History] Omeprazole [PriLOSEC] 20 mg PO DAILY 05/07/20 [History] amLODIPine [Norvasc] 5 mg PO QAM 05/07/20 [History] guaiFENesin [Mucinex] 600 mg PO BID 05/07/20 [History] Benzocaine/Menthol Lozeng [Cepacol lozenge] 1 each MUCOUS MEM Q4HR PRN lozenge 05/14/20 [Rx] HYDROcodone/APAP 5-325MG [[place] 5] 1 each PO Q4HR PRN #42 tab 05/14/20 [Rx] Follow up Appointment(s)/Referral(s): Reinier Napier DO [Primary Care Provider] - 1 Week Radha Potts DO [Doctor of Osteopathic Medicine] - 2 Weeks Activity/Diet/Wound Care/Special Instructions: Keep site clean. May shower with waterproof Tegaderm intact. Do not soak in a tub. After 72 hours postoperatively, patient May remove dressing and then may shower with area uncovered. Leave Steri-Strips intact and allow them to fray off on their own. May ambulate as tolerated. Avoid heavy or rigorous activity. No repetitive bending twisting or lifting. No overhead work. Discharge Disposition: HOME SELF-CARE
[2020-05-14 10:34] VITALS: PULSE 80
[2020-05-14 11:15] LABS: Glucose,Whole Blood 137 mg/dL (75-99)
--- NOTE | 2020-05-14 13:30 | P.PN ---
Subjective Progress Note Date: 05/14/20 64-year-old female one of Dr. Napier patient with past medical history of mild COPD, hypertension, hyperlipidemia, history of bladder cancer and known to have history of severe spinal stenosis. Patient apparently has been having worsening balance and gait with multiple fall significant pain and discomfort in the neck area along with weakness in the right arm. Patient was seen Dr. Romero physiatry further workup including x-ray of the lumbar spine and MRI of the C-spine showed severe spinal stenosis of the cervical spine. Patient was referred to Dr. Potts and ended up going for anterior decompression and fusion of for cervical spine vertebrae. Surgery was successful, patient was admitted to the floor afterward her home meds were started patient is hemodynamically stable and feeling well pain is under control. 05/14: The patient states that she has been up to the bathroom she feels weak and shaky in her lower extremities. She does not feel stronger at this point in her legs. Her pain is currently controlled. She has been afebrile, heart rate 85, blood pressure 132/60, pulse ox 91% on room air. Patient expects to be discharged home later today. Medication reconciliation reviewed and patient will follow-up with Dr. Napier. Review of Systems CONSTITUTIONAL: Well-developed no acute respiratory distress. Denies fever, denies chills. EYES: No icterus sclerae, no conjunctivitis. EARS, NOSE, MOUTH, THROAT, and FACE: No sore throat, lymphadenopathy, carotid bruits or deformity. RESPIRATORY: Mild shortness of breath no cough or wheezes. CARDIOVASCULAR: No CP or Palpitation, + PND, Orthopnea, no angina. GASTROINTESTINAL: No Abd pain, Nausea or vomiting, no Diarrhea or constipation, No GI Bleed, no distention or masses. GENITOURINARY: Negative for Hematuria or UTI, no kidney stones. INTEGUMENT/BREAST: Negative for any muscular injury with mild osteoarthritis.. HEMATOLOGIC/LYMPHATIC: Negative for bleed or purpura. MUSCULOSKELTAL: Generalized myalgia and arthralgia. NEURLOGICAL: No LOC, Sz or syncope, blurred vision dizziness or abnormality. Positive mild abnormal gait. BEHAVIORAL/PSYCH: Negative. ENDOCRINE: Negative. Physical examination General Appearance: Alert, cooperative, no distress, appears stated age. Neck HEENT: no lymphadenopathy, no thyroid enlargement, no carotid bruits. Cervical spine surgery in the right sided anterior approach no sign of bleeding or hematoma no swelling. Soft cervical collar in place. Lungs: Clear to auscultation without crackles or wheezes no rhonchi, no deformity. Chest Wall: Chest wall normal expansion with deep inspiration no tenderness and no deformity was found on exam, no costochondral pain or discomfort. Heart: Regular rate and rhythm, S1, S2 normal, no murmur, rub or gallop. Back: Symmetric, no curvature, ROM normal, no CVA tenderness. Abdomen: Soft, non-tender, bowel sounds active all four quadrants, no masses, no organomegaly. Extremities: normal, atraumatic, no cyanosis or edema. Pulses: 2+ and symmetric. Skin: Skin color, texture, tugor normal, no rashes or lesions. Neurologic: Alert oriented x3 cranial nerves II through XII intact, no motor deficit, no abnormal balance or gait. Assessment and plan 1 post anterior C-spine decompression and fusion: Stable post surgery resume home meds, watch patient hemodynamic status. 2 type 2 diabetes: Continue Accu-Chek with sliding scales coverage, continue patient on Lantus 65 units twice a day along with Glucophage 1000 mg twice a day. 3 hypertension: Remain on Norvasc 5 mg a day, losartan hydrochlorothiazide 100/25 mg daily. 4 hyperlipidemia: On Pravachol 20 mg a day. 5 hypothyroidism: Resume levothyroxine 150 g daily. 6 mild COPD: Remain on rescue inhaler along with Advair 250/50 Diskus 1 inhaler twice a day. 7 chronic edema: Remain on Lasix 20 mg a day. 8 pain management: Remain on Dilaudid 1 mg every 4 hours as needed 9 GI prophylaxis: Continue patient on pantoprazole 40 mg a day. CODE STATUS: Full code. Dr. Potts thank you very much for the consult if I can be any further help to please let me know. Discharge plan: Home Impression and plan of care have been directed as dictated by the signing physician. Sophy Schreiber nurse practitioner acting as scribe for signing physician. Objective - Vital Signs Vital signs: Vital Signs Temp 98.6 F 05/14/20 05:00 Pulse 85 05/14/20 05:00 Resp 18 05/14/20 05:00 BP 132/68 05/14/20 05:00 Pulse Ox 91 L 05/14/20 05:00 Intake & Output 05/13/20 05/14/20 05/14/20 18:59 06:59 18:59 Intake Total 1801 240 Output Total 175 Balance 1626 240 Weight 132.1 kg Intake: IV 1801 Oral 240 Output: Urine 100 Estimated Blood Loss 75 Other: # Voids 2 - Labs Labs: Abnormal Lab Results - Last 24 Hours (Table) 05/13/20 05/13/20 05/13/20 Range/Units 09:10 13:31 17:06 POC Glucose (mg/dL) 199 H 178 H 250 H (75-99) mg/dL 05/13/20 05/14/20 Range/Units 20:45 07:03 POC Glucose (mg/dL) 282 H 130 H (75-99) mg/dL
[2020-05-14 18:08] LABS: Hemoglobin A1C 10.5 % (4.0-6.0)
[2020-05-17] MEDS ORDERED: ERGOCALCIFEROL 50,000 UNIT CAP PO SCH (12:00)
== END 2020-05-14 14:51 | disposition home or self-care (01) ==
LOC: OR 08:37 → 5NMEDONC 14:05 → OR 23:41
PROVIDERS: ADMIT Orthopaedic Surgery Orthopaedic Surgery of the Spine; ATTEND Orthopaedic Surgery Orthopaedic Surgery of the Spine
DX: M48.02 Spinal stenosis, cervical region (principal); M50.021 Cervical disc disorder at C4-C5 level with myelopathy; G95.89 Other specified diseases of spinal cord; Z91.81 History of falling; M47.816 Spondylosis without myelopathy or radiculopathy, lumbar region; G62.9 Polyneuropathy, unspecified; I10 Essential (primary) hypertension; E03.9 Hypothyroidism, unspecified; R26.81 Unsteadiness on feet; H91.90 Unspecified hearing loss, unspecified ear; Z85.51 Personal history of malignant neoplasm of bladder; E11.9 Type 2 diabetes mellitus without complications; E78.5 Hyperlipidemia, unspecified; K21.9 Gastro-esophageal reflux disease without esophagitis; Z87.442 Personal history of urinary calculi; Z90.49 Acquired absence of other specified parts of digestive tract; Z90.710 Acquired absence of both cervix and uterus; Z98.890 Other specified postprocedural states; Z87.891 Personal history of nicotine dependence; Z79.82 Long term (current) use of aspirin; Z79.890 Hormone replacement therapy; Z79.4 Long term (current) use of insulin; Z79.51 Long term (current) use of inhaled steroids; Z79.899 Other long term (current) drug therapy; Z88.1 Allergy status to other antibiotic agents; Z88.2 Allergy status to sulfonamides
CPT/HCPCS: 94660; 94640 ×2; 86900; 86901; 86850; 83036; 72020; 22551; 22552 ×2; 20931; G0378 ×2; C1713 ×2; C1762 ×2; J2250; J1100; J0690 ×3; J2405; J2001; J3010; J1170; J0330; J2704

== ENCOUNTER → 2020-09-21 | Outpatient (CLI) | payer MEDICARE ==
[2020-09-21 16:49] LABS: Hemoglobin A1C 7.4 % (4.0-6.0)
[2020-09-21 17:14] LABS: African American GFR (CKD) 105.4 (60.0-200.0); Albumin 4.4 g/dL (3.80-4.90); Albumin/Globulin Ratio 2.1 (1.60-3.17); Anion Gap 9.3 mmol/L (4.00-12.00); BUN/Creat Ratio 17.14 Ratio (12.00-20.00); Calcium 9.7 mg/dL (8.7-10.3); Carbon Dioxide 29.7 mmol/L (21.6-31.8); Chol/HDL Ratio 3.88; Globulin 2.1 g/dL (1.6-3.3); LDL Cholesterol,Calculated 88.4 mg/dL (0.0-131.0); Non-African American GFR(CKD) 90.9 (60.0-200.0); Potassium 3.7 mmol/L (3.5-5.5); Total Bilirubin 0.4 mg/dL (0.2-1.2); Total Protein 6.5 g/dL (6.2-8.2); VLDL Calculation 32.6 mg/dL (5.00-40.00)
== END | disposition home or self-care (01) ==
LOC: LABWHC1 09:48
PROVIDERS: ATTEND Internal Medicine Endocrinology, Diabetes & Metabolism
DX: E11.65 Type 2 diabetes mellitus with hyperglycemia (principal)
CPT/HCPCS: 36415; 80053; 80061; 82043; 82570; 83036; 84443

== ENCOUNTER → 2020-12-10 | Outpatient (CLI) | payer MEDICARE ==
--- NOTE | 2020-12-10 17:33 | SFUN ---
SLEEP CENTER FOLLOW UP NOTE DATE OF SERVICE: 12/10/2020 This is a 65-year-old lady who has been followed in Sleep Center for treatment of obstructive sleep apnea-hypopnea syndrome. The patient continue to use her CPAP equipment every night but has episodes of awakenings up to 3 times per night at the present time. Sometimes she feels that there is water in her mask. Sometimes in the morning when she wakes up, she feels that her nose is plugged up. [place] Sleepiness Scale today is 3, which is normal. The patient also explained that sometimes she fills half of the tank with water, and then there is no water in the morning in the chamber of the humidifier. I checked her CPAP unit. Range of the pressure is 5 to 13 with average pressure 11.6. Usage is 30/30 nights for more than 4 hours. Quite high leak at 52 L/minute. Apnea- hypopnea index is in normal range at 4.3. Humidifier is at the level of 2. MEDICATIONS: 1. Metformin 1000 mg twice a day. 2. Pravastatin 20 mg once a day. 3. Losartan 100/25 mg once a day. 4. Levothyroxine 150 mcg once a day. 5. Claritin 10 mg once a day. 6. Omeprazole 20 mg once a day. 7. Aspirin 81 mg once a day. 8. Advair 250/50 twice a day. 9. Amlodipine 5 mg twice a day. 10.Mucinex 600 mg twice a day. 11.Lasix 20 mg once a day. 12.Vitamin D 50,000 units once a month. 13.Glimepiride 4 mg once a day. PHYSICAL EXAMINATION: GENERAL: A pleasant patient in no distress. VITAL SIGNS: BP 176/71, HR 80, RR 16, height 5 feet 6 inches, weight 287.2, temperature 98.5, oxygen saturation at room air 97%. HEENT: PERRLA, EOMI. Evaluation of oropharynx showed tongue protrudes midline. Extremely low position of soft palate. Mallampati IV. NECK: Supple. No JVD. Thyroid is not palpable. LUNGS: Clear to percussion and to auscultation. Good air exchange. No wheezing or rhonchi. HEART: S1, S2 regular. No murmurs, gallops or rubs. ABDOMEN: Obese. EXTREMITIES: No clubbing or cyanosis. [place]: Awake, alert, and oriented X3. Cranial nerves 2 to 7 intact. There is no fasciculation or atrophy. noted. No focal deficits observed. IMPRESSION: 1. Obstructive sleep apnea-hypopnea syndrome. Patient demonstrated 100% compliance with treatment, benefitting from treatment. 2. Patient has some problems with humidity. Sometimes there is too much water in the mask. Sometimes I believe she feel dryness in the nose and there is no water in the humidifier. 3. Obesity. 4. Hypertension. 5. Diabetes mellitus. 6. Hyperlipidemia. 7. Multiple allergies. 8. Acid reflux. 9. Arthritis. 10.History of spinal stenosis. 11.Status post total hysterectomy. 12.History of bladder carcinoma, treated surgically. 13.Status post cholecystectomy. 14.History of ear infection, including infection of mastoid 5 years ago. 15.Status post neck surgery in May of 2020. PLAN: 1. I discussed extensively adjustments of humidifier position of the machine and tube during sleep. 2. Patient will continue to use PAP equipment every night for the whole night. 3. Sleep hygiene with regular time in bed for at least 7-1/2 to 8 hours. 4. Precautions related to driving. No driving if feeling sleepiness. 5. I will maintain all necessary prescription for PAP supplies including mask, tube, filters. 6. Watching weight. 7. Follow-up visit in 6 months or earlier if patient has any problems. Thank you very much for allowing me to participate in the management of your patient. Sincerely, Rohan Simmons MD, PhD, FAASM Diplomat of [employer] [facility] MMODL / IJN: [id number] /
== END ==
LOC: SLEEP 15:42
PROVIDERS: ATTEND Internal Medicine
DX: G47.33 Obstructive sleep apnea (adult) (pediatric) (principal); T78.1XXA Other adverse food reactions, not elsewhere classified, initial encounter; I10 Essential (primary) hypertension; E11.9 Type 2 diabetes mellitus without complications; E78.5 Hyperlipidemia, unspecified; E66.9 Obesity, unspecified; M19.90 Unspecified osteoarthritis, unspecified site; K21.9 Gastro-esophageal reflux disease without esophagitis; Z90.710 Acquired absence of both cervix and uterus; Z85.51 Personal history of malignant neoplasm of bladder; Z87.39 Personal history of other diseases of the musculoskeletal system and connective tissue; Z86.69 Personal history of other diseases of the nervous system and sense organs; Z90.49 Acquired absence of other specified parts of digestive tract; Z98.890 Other specified postprocedural states

== ENCOUNTER → 2021-01-11 | Outpatient (CLI) | payer MEDICARE ==
[2021-01-11 19:52] LABS: Albumin 4.4 g/dL (3.80-4.90); Albumin/Globulin Ratio 2.1 (1.60-3.17); Anion Gap 10.1 mmol/L (4.00-12.00); BUN/Creat Ratio 21.25 Ratio (12.00-20.00); Calcium 9.6 mg/dL (8.7-10.3); Carbon Dioxide 27.9 mmol/L (21.6-31.8); Chol/HDL Ratio 4.4; Globulin 2.1 g/dL (1.6-3.3); LDL Cholesterol,Calculated 105.8 mg/dL (0.0-131.0); Non-African American GFR(CKD) 76.8 (60.0-200.0); Potassium 3.7 mmol/L (3.5-5.5); Total Bilirubin 0.4 mg/dL (0.3-1.2); Total Protein 6.5 g/dL (6.2-8.2); VLDL Calculation 47.2 mg/dL (5.00-40.00)
== END | disposition home or self-care (01) ==
LOC: LABWHC1 10:43
PROVIDERS: ATTEND Internal Medicine Endocrinology, Diabetes & Metabolism
DX: E11.65 Type 2 diabetes mellitus with hyperglycemia (principal)
CPT/HCPCS: 36415; 80053; 80061; 83036; 84443

== ENCOUNTER → 2021-01-14 | Outpatient (CLI) | payer MEDICARE ==
--- NOTE | 2021-01-14 11:20 | CT ---
EXAMINATION TYPE: CT iac wo con DATE OF EXAM: 01/14/2021 COMPARISON: NONE HISTORY: Lt sided ear infection for [address] DLP: 313 mGycm. Automated Exposure Control for Dose Reduction was Utilized. TECHNIQUE: CT scan of internal auditory canal is performed without contrast, thin cut axial images ar e obtained, coronal reformatted images are also reviewed. FINDINGS: The external auditory canals show some patchy cerumen deep aspect right extra auditory debbie l and more prominent soft tissue density in the periphery of the deep aspect of the left extra audito ry canal. Evidence of prior left mastoid surgery with residual mastoid air cells showing complete opacification . There is sclerosis of the remnant bone. There is patchy opacification in the right mastoid air gabriel ls including a level of the petrous apex. The middle ear ossicles are symmetric and within normal limits. There is suspicious surrounding soft tissue density to suggest cholesteatoma on the left. The scutum is preserved bilaterally. No abnor mal soft tissue on the right. The cochlea and the semicircular canals are symmetric and unremarkable. Vestibular aqueduct and inte rnal carotid canal appear unremarkable. Satisfactory superior bony coverage over the superior semici rcular canal noted. Temporomandibular joints are maintained bilaterally. [id number] mucosal thickening in the visua lized portion of left maxillary sinus. Visualized portion brain parenchyma is felt within normal limi ts. IMPRESSION: Prior left mastoid surgery. Residual chronic left-sided mastoiditis. Patchy right-sided mastoiditis and petrous apicitis suspected. Recurrent left-sided middle ear infection or cholesteatom a suspected.
== END | disposition home or self-care (01) ==
LOC: RADCTMAIN 10:28
PROVIDERS: ATTEND Otolaryngology
DX: H70.92 Unspecified mastoiditis, left ear (principal)
CPT/HCPCS: 70480

== ENCOUNTER → 2021-07-29 | Outpatient (CLI) | payer MEDICARE ==
--- NOTE | 2021-07-29 21:53 | SFUN ---
SLEEP CENTER FOLLOW UP NOTE DATE OF SERVICE: 07/29/2021 This 65-year-old lady has been followed in Sleep Center for treatment of obstructive sleep apnea-hypopnea syndrome. The patient continues to use her CPAP equipment every night, getting her supplies on time. [place] Sleepiness Scale today is 2, which is normal. I checked her CPAP unit. Range of the pressure is 5 to 13, average pressure 12.4. Usage is 30 out of 30 nights for more than 4 hours, average 8.3 hours per night. Leak is 32 L/minute, which is slightly high. Apnea-hypopnea index is 2.9, which is totally normal. MEDICATIONS: 1. Metformin 1000 mg twice a day. 2. Pravastatin 20 mg once a day. 3. Losartan 100/25 mg once a day. 4. Levothyroxine 150 mcg once a day. 5. Basaglar 50 units in the morning and 30 units at night. PHYSICAL EXAMINATION: GENERAL: Pleasant patient in no distress. VITAL SIGNS: BP 122/77, HR 82, RR 15, height 5 feet 5 inches, weight 264 pounds, body mass index 43.9, temperature 97.1, oxygen saturation at room air 96%. HEENT: PERRLA, EOMI, evaluation of oropharynx showed tongue protrudes midline. Extremely low position of soft palate; Mallampati IV. NECK: Supple, no JVD. Thyroid is not palpable. LUNGS: Clear to percussion and to auscultation. Good air exchange. No wheezing or rhonchi. HEART: S1, S2 regular. No murmurs, gallops, or rubs. ABDOMEN: Obese. EXTREMITIES: No clubbing or cyanosis. FAMILY PRACTICE MEDICAL DOCTOR: Awake, alert, and oriented X3. Cranial nerves 2 to 7 intact. There is no fasciculation or atrophy. noted. No focal deficits observed. IMPRESSION: 1. Obstructive sleep apnea-hypopnea syndrome. Patient demonstrated great compliance with treatment, benefitting from treatment. Normal respiration on CPAP. At present no problems with humidity. It was fixed after the previous visit. 2. Obesity. 3. Hypertension. 4. Diabetes mellitus. 5. Hyperlipidemia. 6. Multiple allergies. 7. Acid reflux. 8. Arthritis. 9. History of spinal stenosis. 10.Status post total hysterectomy. 11.History of bladder carcinoma, treated surgically. 12.Status post cholecystectomy. 13.History of , infection, including infection of mastoid about 5 years ago. 14.Status post neck surgery in May of 2020. PLAN: 1. Patient will continue to use PAP equipment every night for the whole night. 2. Sleep hygiene with regular time in bed for at least 7-1/2 to 8 hours. 3. Precautions related to driving. No driving if feeling sleepiness. 4. I will maintain all necessary prescription for PAP supplies including mask, tube, filters. 5. Watching weight. 6. Follow-up visit in 6 months or earlier if patient has any problems. Thank you very much for allowing me to participate in the management of your patient. Sincerely, Rohan Simmons MD, PhD, FAASM Diplomat of [employer] Sleep Medicine Board of [employer] Food Service Manager of [facility] [place] MMDK / VINITA: [id number] /
== END | disposition home or self-care (01) ==
LOC: SLEEP 11:37
PROVIDERS: ATTEND Internal Medicine
DX: G47.33 Obstructive sleep apnea (adult) (pediatric) (principal); E66.9 Obesity, unspecified; I10 Essential (primary) hypertension; E11.9 Type 2 diabetes mellitus without complications; E78.5 Hyperlipidemia, unspecified; T78.40XA Allergy, unspecified, initial encounter; K21.9 Gastro-esophageal reflux disease without esophagitis; M19.90 Unspecified osteoarthritis, unspecified site; Z86.69 Personal history of other diseases of the nervous system and sense organs; Z90.49 Acquired absence of other specified parts of digestive tract; Z85.51 Personal history of malignant neoplasm of bladder; Z98.890 Other specified postprocedural states

== ENCOUNTER → 2021-08-24 | Outpatient (CLI) | payer MEDICARE ==
[2021-08-24 20:05] LABS: ALT 15 U/L (8-44); AST 14 U/L (13-35); African American GFR (CKD) 105.3 (60.0-200.0); Albumin 4.2 g/dL (3.8-4.9); Albumin/Globulin Ratio 1.71 (1.60-3.17); Alkaline Phosphatase 131 U/L (41-126); BUN/Creat Ratio 21.28 Ratio (12.00-20.00); Blood Urea Nitrogen 14.6 mg/dL (9.0-27.0); Calcium 9.6 mg/dL (8.7-10.3); Carbon Dioxide 22.8 mmol/L (20.0-27.5); Chloride 103 mmol/L (96-109); Chol/HDL Ratio 3.83 Ratio; Globulin 2.5 g/dL (1.6-3.3); Glucose 125 mg/dL (70-110); Non-African American GFR(CKD) 90.9 (60.0-200.0); Potassium 4.2 mmol/L (3.5-5.5); Sodium 140 mmol/L (135-145); Total Protein 6.6 g/dL (6.2-8.2)
[2021-08-24 22:33] LABS: Urine Creatinine 41.9 mg/dL (28.0-217.0)
== END | disposition home or self-care (01) ==
LOC: LABWHC1 10:40
PROVIDERS: ATTEND Internal Medicine Endocrinology, Diabetes & Metabolism
DX: E11.65 Type 2 diabetes mellitus with hyperglycemia (principal)
CPT/HCPCS: 36415; 80053; 80061; 82043; 82570; 83036; 84443

== ENCOUNTER → 2022-01-26 | Outpatient (CLI) | payer MEDICARE ==
--- NOTE | 2022-01-26 12:38 | SFUN ---
SLEEP CENTER FOLLOW UP NOTE DATE OF SERVICE: 01/26/2022. This 66-year-old lady has been followed in Sleep Center for treatment of obstructive sleep apnea-hypopnea syndrome. The patient continues to use her CPAP equipment every night for the whole night. In October she had an episode of fall with loss of consciousness and was evaluated in the hospital at that time. She continues to use her CPAP equipment every night. Her [place] Sleepiness Scale today is 2, which is totally normal. I checked her CPAP unit. Pressure is 5 to 13 cm of water, average 11.4 cm of water. Usage is every night 30/30 nights for more than 4 hours, average 8.6 hours per night, which is good compliance. Leak is 26 L/minute, which is borderline. Apnea-hypopnea index is only 0.9, which is absolutely normal. MEDICATIONS: 1. Basaglar units in the morning. 2. Metformin 1000 mg twice a day. 3. Pravastatin 20 mg once a day. 4. Losartan 100 mg in the morning. 5. Hydrochlorothiazide 25 mg in the morning. 6. Levothyroxine 150 mcg in the morning. 7. Claritin 10 mg in the evening. 8. Omeprazole 20 mg in the evening. 9. Aspirin 81 mg once a day. 10.Trazodone 100 mg in the evening. 11.Labetalol 100 mg twice a day. ALLERGIES: SULFA-BASED DRUGS AND ERYTHROMYCIN. PHYSICAL EXAMINATION: GENERAL: Pleasant patient in no distress. VITAL SIGNS: BP 135/78, HR 69, RR 16, weight 236.8. Patient lost weight since her previous visit. Previously her weight was 264 pounds. Temperature 96.6, oxygen saturation at room air 97%. HEENT: PERRLA, EOMI, evaluation of oropharynx showed tongue protrudes midline. Low position of soft palate; Mallampati IV. NECK: Supple, no JVD. Thyroid is not palpable. LUNGS: Clear to percussion and to auscultation. Good air exchange. No wheezing or rhonchi. HEART: S1, S2 regular. No murmurs, gallops, or rubs. ABDOMEN: Obese. EXTREMITIES: No clubbing or cyanosis. RAIL TECHNICIAN: Awake, alert, and oriented X3. Cranial nerves 2 to 7 intact. There is no fasciculation or atrophy. noted. No focal deficits observed. IMPRESSION: 1. Obstructive sleep apnea-hypopnea syndrome. Patient demonstrated 100% compliance with treatment. Totally normal respiration on CPAP. 2. Obesity. Patient lost about 30 pounds since previous visit. 3. Hypertension. 4. Diabetes mellitus. 5. Hyperlipidemia. 6. Multiple allergies. 7. Acid reflux. 8. Arthritis. 9. History of spinal stenosis. 10.Status post total hysterectomy. 11.History of bladder carcinoma, treated surgically. 12.Status post cholecystectomy. 13.History of mastoid infection about 5 years ago. 14.Status post neck surgery in May of 2020. PLAN: 1. Patient will continue to use PAP equipment every night for the whole night. 2. Sleep hygiene with regular time in bed for at least 7-1/2 to 8 hours. 3. Precautions related to driving. No driving if feeling sleepiness. 4. I will maintain all necessary prescription for PAP supplies including mask, tube, filters. 5. Watching weight. 6. Follow-up visit in 6 months or earlier if patient has any problems. Thank you very much for allowing me to participate in the management of your patient. Sincerely, Rohan Simmons MD, PhD, FAASM Diplomat of [place] [employer] Sleep Medicine Board of [employer] Board of Internal Medicine Music Producer of [facility] [place] MMODL / IJN: [id number] /
== END | disposition home or self-care (01) ==
LOC: SLEEP 11:34
PROVIDERS: ATTEND Internal Medicine
DX: G47.33 Obstructive sleep apnea (adult) (pediatric) (principal); E66.9 Obesity, unspecified; I10 Essential (primary) hypertension; E11.9 Type 2 diabetes mellitus without complications; E78.5 Hyperlipidemia, unspecified; K21.9 Gastro-esophageal reflux disease without esophagitis; M19.90 Unspecified osteoarthritis, unspecified site; Z90.711 Acquired absence of uterus with remaining cervical stump; Z98.1 Arthrodesis status

== ENCOUNTER → 2022-05-10 | Outpatient (CLI) | payer MEDICARE ==
[2022-05-10 16:33] LABS: ALT 15 U/L (8-44); AST 20 U/L (13-35); African American GFR (CKD) 86.5 (60.0-200.0); Albumin 4.3 g/dL (3.8-4.9); Albumin/Globulin Ratio 1.74 (1.60-3.17); Alkaline Phosphatase 108 U/L (41-126); BUN/Creat Ratio 27.48 Ratio (12.00-20.00); Blood Urea Nitrogen 22.4 mg/dL (9.0-27.0); Calcium 9.6 mg/dL (8.7-10.3); Carbon Dioxide 25.6 mmol/L (20.0-27.5); Chloride 105 mmol/L (96-109); Chol/HDL Ratio 3.91 Ratio; Globulin 2.4 g/dL (1.6-3.3); Glucose 108 mg/dL (70-110); LDL Cholesterol,Calculated 83.6 mg/dL (0.0-131.0); Non-African American GFR(CKD) 74.6 (60.0-200.0); Potassium 4.1 mmol/L (3.5-5.5); Sodium 142 mmol/L (135-145); Total Protein 6.7 g/dL (6.2-8.2)
[2022-05-10 19:50] LABS: Urine Creatinine 87.5 mg/dL (28.0-217.0)
== END | disposition home or self-care (01) ==
LOC: LABWHC1 09:59
PROVIDERS: ATTEND Internal Medicine Endocrinology, Diabetes & Metabolism
DX: E11.65 Type 2 diabetes mellitus with hyperglycemia (principal)
CPT/HCPCS: 36415; 80053; 80061; 82043; 82570; 83036; 84443

== ENCOUNTER → 2022-08-18 | Outpatient (CLI) | payer MEDICARE ==
--- NOTE | 2022-08-18 13:58 | P.PN ---
Subjective DATE: 08/18/2022 FOLLOW UP VISIT. Patient with obstructive sleep apnea hypopnea syndrome return to sleep center for follow-up visit. Information from previous visit have been reviewed. Patient is using PAP equipment every night for the whole night, getting PAP supplies in time. The patient does not have significant problems with the mask, PAP unit and humidification. [place] sleepiness scale is 3, which is normal. I checked information from PAP unit. PAP unit pressure 5-13, average 11 cm H2O. Usage is 100 % for more then 4 hours, average 8.4 hours per night. Leak is 10 l/m, which is in acceptable range. Apnea Hypopnea Index is 0.8, which is normal. MEDICATIONS:1. Metformin 1000 mg twice a day 2. Pravastatin 20 mg once a day 3. Losartan 100 mg once a day 4. Levothyroxine 150 g once a day 5. Trazodone 100 mg at bedtime 6. Carvedilol 25 mg once a day 7. Basaglar 48 units once a day During physical exam: GENERAL: A pleasant patient without any distress. VITAL SIGNS: BP 148/79, HR 71, RR 16 , weight 227.8, temperature 96.5, oxygen saturation at room air 96 % . HEENT: PERRLA, EOMI.low position of soft palate, Mallapati 4 . NECK: Supple. No JVD. LUNGS: Clear to percussion and to auscultation. Good air exchange. No wheezing or rhonchi. HEART: S1, S2 regular. ABDOMEN: Soft and nontender. Slightly obese EXTREMITIES: No clubbing or cyanosis. TELEGRAPHIC TYPEWRITER MECHANIC: Awake, alert, and oriented x3. No focal deficit. Impressions: 1. Obstructive sleep apnea-hypopnea syndrome. Patient demonstrated great compliance with treatment, benefiting from treatment. 2. Obesity patient lost another 9 pounds.. 3. Hypertension. 4. Diabetes mellitus. 5. Hyperlipidemia. 6. Acid reflux. 7. Multiple ALLERGIES. 8. Arthritis. 9. History of spinal stenosis. 10. Status post total hysterectomy. 11. Status post cholecystectomy. 12. Status post bladder CA treated surgically. 13. Status post neck surgery in 2019. Plan: 1. Continue using PAP equipment every night for the whole night. 2. To change air filter at least 1-2 times per month. 3. PAP unit should stay lower then position of the head. 4. Advised patient to remove all remaining water from humidifier canister daily and make it dry after each usage. Refill canister with fresh distilled water before each usage. 5. Sleep hygiene with regular time in bed for at least 8 hours. 6. Precautions related to driving. No driving if feel any sleepiness. 7. I will maintain prescription for PAP supplies including mask, tube, filters. 8. Follow up visit in 6 months or earlier if patient has any problems. 9. Watching and continue losing weight. Thank you very much for allowing me to participate in the management of your patient. Rohan Simmons MD, PhD, FAASM. Diplomat of [place] [employer] Medicine, Sleep Medicine Board by [employer] Medicine Airport Planner of [facility] [place]
== END ==
LOC: SLEEP 13:10
PROVIDERS: ATTEND Internal Medicine
DX: G47.33 Obstructive sleep apnea (adult) (pediatric) (principal); E66.9 Obesity, unspecified; I10 Essential (primary) hypertension; E11.9 Type 2 diabetes mellitus without complications; E78.5 Hyperlipidemia, unspecified; K21.9 Gastro-esophageal reflux disease without esophagitis; M19.90 Unspecified osteoarthritis, unspecified site; Z98.890 Other specified postprocedural states; M48.00 Spinal stenosis, site unspecified; Z90.710 Acquired absence of both cervix and uterus; Z88.2 Allergy status to sulfonamides; Z88.1 Allergy status to other antibiotic agents; Z87.891 Personal history of nicotine dependence
CPT/HCPCS: 99212

== ENCOUNTER → 2022-10-12 | Outpatient (CLI) | payer MEDICARE ==
[2022-10-12 20:00] LABS: ALT 12 U/L (8-44); AST 12 U/L (13-35); African American GFR (CKD) 103.2 (60.0-200.0); Albumin 4.1 g/dL (3.8-4.9); Albumin/Globulin Ratio 2.05 (1.60-3.17); Alkaline Phosphatase 115 U/L (41-126); BUN/Creat Ratio 25.86 Ratio (12.00-20.00); Blood Urea Nitrogen 18.1 mg/dL (9.0-27.0); Carbon Dioxide 26.2 mmol/L (20.0-27.5); Chloride 105 mmol/L (96-109); Chol/HDL Ratio 3.05 Ratio; Glucose 169 mg/dL (70-110); LDL Cholesterol,Calculated 76.7 mg/dL (0.0-131.0); Potassium 4.4 mmol/L (3.5-5.5); Sodium 141 mmol/L (135-145); Total Protein 6.1 g/dL (6.2-8.2)
[2022-10-13 00:31] LABS: Urine Creatinine 89.3 mg/dL (28.0-217.0)
== END | disposition home or self-care (01) ==
LOC: LABWHC1 11:57
PROVIDERS: ATTEND Internal Medicine Endocrinology, Diabetes & Metabolism
DX: E11.65 Type 2 diabetes mellitus with hyperglycemia (principal)
CPT/HCPCS: 36415; 80053; 80061; 82043; 82570; 84443

== ENCOUNTER → 2023-01-23 | Outpatient (CLI) | payer MEDICARE ==
[2023-01-23 16:13] LABS: ALT 17 U/L (8-44); AST 16 U/L (13-35); African American GFR (CKD) 103.2 (60.0-200.0); Albumin 4.1 g/dL (3.8-4.9); Albumin/Globulin Ratio 1.71 (1.60-3.17); Alkaline Phosphatase 104 U/L (41-126); BUN/Creat Ratio 20.14 Ratio (12.00-20.00); Blood Urea Nitrogen 14.1 mg/dL (9.0-27.0); Calcium 9.5 mg/dL (8.7-10.3); Carbon Dioxide 23.1 mmol/L (20.0-27.5); Chloride 105 mmol/L (96-109); Chol/HDL Ratio 4.67 Ratio; Globulin 2.4 g/dL (1.6-3.3); Glucose 196 mg/dL (70-110); Potassium 4.7 mmol/L (3.5-5.5); Sodium 140 mmol/L (135-145); Total Bilirubin <0.15 mg/dL (0.30-1.20); Total Protein 6.5 g/dL (6.2-8.2)
== END | disposition home or self-care (01) ==
LOC: LABWHC1 10:22
PROVIDERS: ATTEND Internal Medicine Endocrinology, Diabetes & Metabolism
DX: E11.65 Type 2 diabetes mellitus with hyperglycemia (principal)
CPT/HCPCS: 36415; 80053; 80061; 82043; 82570; 83036; 84443

== ENCOUNTER → 2023-02-16 | Outpatient (CLI) | payer MEDICARE ==
--- NOTE | 2023-02-16 13:29 | P.PN ---
Subjective DATE: 02/16/2023 FOLLOW UP VISIT. Patient with obstructive sleep apnea hypopnea syndrome return to sleep center for follow-up visit. Information from previous visit have been reviewed. Patient is using PAP equipment every night for the whole night, getting PAP supplies in time. The patient does not have significant problems with the mask, PAP unit and humidification. [place] sleepiness scale is 1, which is perfect. I checked information from PAP unit. PAP unit pressure 5-13, average 12.2 cm H2O. Usage is 100 % for more then 4 hours, average 8.5 hours per night. Leak is 20.6 l/m, which is in acceptable range. Apnea Hypopnea Index is great only 0.8. MEDICATIONS:1. Metformin 1000 mg twice a day 2. Pioglitazone 30 mg once a day 3. Losartan 50 mg twice a day 4. Carvedilol 25 mg twice a day 5. Hydralazine 50 mg once a day 6. Pravastatin 20 mg once a day 7. Levothyroxine 150 g once a day 8. Trazodone 100 mg at bedtime 9. Insulin During physical exam: GENERAL: A pleasant patient without any distress. VITAL SIGNS: BP 149/76, HR 68, RR 12 , weight 243.6, temperature 97.2, oxygen saturation at room air 94 % . HEENT: PERRLA, EOMI.low position of soft palate, Mallapati 4 . NECK: Supple. No JVD. LUNGS: Clear to percussion and to auscultation. Good air exchange. No wheezing or rhonchi. HEART: S1, S2 regular. ABDOMEN: Soft and nontender. Slightly obese EXTREMITIES: No clubbing or cyanosis. PRINCIPAL CLOUD ARCHITECT: Awake, alert, and oriented x3. No focal deficit. Impressions: 1. Obstructive sleep apnea-hypopnea syndrome. Patient demonstrated great compliance with treatment, benefiting from treatment. 2. Obesity, BMI 41.0, patient increased her wait on 7 pounds comparing with previous visit. 3. Diabetes mellitus. 4. Hypertension. 5. Acid reflux. 6. Multiple ALLERGIES. 7. History of arthritis. 8. History of spinal stenosis. 9. History of bladder cancer, treated surgically. 10. Status post neck surgery in May 2020. 11. Status post cholecystectomy. 12. Status post total hysterectomy. Plan: 1. Continue using PAP equipment every night for the whole night. 2. To change air filter at least 1-2 times per month. 3. PAP unit should stay lower then position of the head. 4. Advised patient to remove all remaining water from humidifier canister daily and make it dry after each usage. Refill canister with fresh distilled water before each usage. 5. Sleep hygiene with regular time in bed for at least 8 hours. 6. Precautions related to driving. No driving if feel any sleepiness. 7. I will maintain prescription for PAP supplies including mask, tube, filters. 8. Follow up visit in 6 months or earlier if patient has any problems. 9. Watching and losing weight. Thank you very much for allowing me to participate in the management of your patient. Rohan Simmons MD, PhD, FAASM. Diplomat of [place] [employer] Sleep Medicine, Sleep Medicine Board by [place] [employer] Internal Medicine Glaze Handler of [facility] [place]
== END ==
LOC: SLEEP 12:54
PROVIDERS: ATTEND Internal Medicine
DX: G47.33 Obstructive sleep apnea (adult) (pediatric) (principal); E66.9 Obesity, unspecified; Z68.41 Body mass index [BMI] 40.0-44.9, adult; E11.9 Type 2 diabetes mellitus without complications; I10 Essential (primary) hypertension; K21.9 Gastro-esophageal reflux disease without esophagitis; M19.90 Unspecified osteoarthritis, unspecified site; M48.061 Spinal stenosis, lumbar region without neurogenic claudication; Z99.89 Dependence on other enabling machines and devices; Z79.84 Long term (current) use of oral hypoglycemic drugs; Z79.4 Long term (current) use of insulin; Z88.2 Allergy status to sulfonamides; Z88.1 Allergy status to other antibiotic agents; Z87.891 Personal history of nicotine dependence
CPT/HCPCS: 99212

== ENCOUNTER → 2023-09-13 | Outpatient (CLI) | payer MEDICARE ==
--- NOTE | 2023-09-13 12:26 | P.PN ---
Subjective DATE: 09/13/2023 FOLLOW UP VISIT. Patient with obstructive sleep apnea hypopnea syndrome return to sleep center for follow-up visit. Information from previous visit have been reviewed. Patient is using PAP equipment every night for the whole night, getting PAP supplies in time. The patient does not have significant problems with the mask, PAP unit and humidification. [place] sleepiness scale is 1. I checked information from PAP unit. PAP unit pressure 5-13, average 10.3 cm H2O. Usage is 100 % for more then 4 hours, average 9.1 hours per night. Leak is 28 l/m, which is in acceptable range. Apnea Hypopnea Index is 0.8, which is normal. MEDICATIONS:1. Metformin 1000 mg twice a day 2. Carvedilol 25 mg twice a day 3. Hydralazine 50 mg once a day 4. Pravastatin 20 mg once a day 5. Levothyroxine 37 g once a day 6. Ozempic During physical exam: GENERAL: A pleasant patient without any distress. VITAL SIGNS: BP 148/57, HR 74, RR 16 , weight 210.4, temperature 97.3, oxygen saturation at room air 96 % . HEENT: PERRLA, EOMI.low position of soft palate, Mallapati 4 . NECK: Supple. No JVD. LUNGS: Clear to percussion and to auscultation. Good air exchange. No wheezing or rhonchi. HEART: S1, S2 regular. ABDOMEN: Soft and nontender.[] EXTREMITIES: No clubbing or cyanosis. STAFFING MGR: Awake, alert, and oriented x3. No focal deficit. Impressions: 1. Obstructive sleep apnea-hypopnea syndrome. Patient demonstrated great compliance with treatment, benefiting from treatment. 2. Obesity, patient lost 3 pounds since previous visit. 3. Hypertension. 4. Diabetes mellitus. 5. Acid reflux. 6. History of bladder cancer treated surgically. 7. History of spinal stenosis. 8. History of arthritis. 9. Multiple ALLERGIES. 10. Status post neck surgery in May 2020. 11. Status post cholecystectomy. 12. Status post hysterectomy. Plan: 1. Continue using PAP equipment every night for the whole night. 2. To change air filter at least 1-2 times per month. 3. PAP unit should stay lower then position of the head. 4. Advised patient to remove all remaining water from humidifier canister daily and make it dry after each usage. Refill canister with fresh distilled water before each usage. 5. Sleep hygiene with regular time in bed for at least 8 hours. 6. Precautions related to driving. No driving if feel any sleepiness. 7. I will maintain prescription for PAP supplies including mask, tube, filters. 8. Watching and losing weight. 9. Follow up visit in 6 months or earlier if patient has any problems. Thank you very much for allowing me to participate in the management of your patient. Rohan Simmons MD, PhD, FAASM. Diplomat of [place] [employer] Medicine, Sleep Medicine Board by [employer] [employer] Medicine Web Services Architect of [facility] [place]
== END ==
LOC: 3 N SLEEP 11:39
PROVIDERS: ATTEND Internal Medicine
DX: G47.33 Obstructive sleep apnea (adult) (pediatric) (principal); E66.9 Obesity, unspecified; I10 Essential (primary) hypertension; E11.9 Type 2 diabetes mellitus without complications; K21.9 Gastro-esophageal reflux disease without esophagitis; M19.90 Unspecified osteoarthritis, unspecified site; Z87.39 Personal history of other diseases of the musculoskeletal system and connective tissue; Z79.899 Other long term (current) drug therapy; Z79.84 Long term (current) use of oral hypoglycemic drugs; Z79.85 Long-term (current) use of injectable non-insulin antidiabetic drugs; Z85.51 Personal history of malignant neoplasm of bladder; Z90.49 Acquired absence of other specified parts of digestive tract; Z90.710 Acquired absence of both cervix and uterus; Z98.890 Other specified postprocedural states; Z99.89 Dependence on other enabling machines and devices; Z88.2 Allergy status to sulfonamides; Z88.1 Allergy status to other antibiotic agents; Z79.4 Long term (current) use of insulin; Z79.82 Long term (current) use of aspirin; Z87.891 Personal history of nicotine dependence
CPT/HCPCS: 99212

== ENCOUNTER → 2023-11-02 | Outpatient (CLI) | payer MEDICARE ==
[2023-11-02 15:32] LABS: ALT 9 U/L (8-44); AST 13 U/L (13-35); Albumin 4.1 g/dL (3.8-4.9); Albumin/Globulin Ratio 2.05 Ratio (1.60-3.17); Alkaline Phosphatase 87 U/L (41-126); BUN/Creat Ratio 22.17 Ratio (12.00-20.00); Blood Urea Nitrogen 13.3 mg/dL (9.0-27.0); Calcium 9.7 mg/dL (8.7-10.3); Carbon Dioxide 24.4 mmol/L (21.6-31.8); Chloride 99 mmol/L (96-109); Chol/HDL Ratio 3.06 Ratio; Glucose 163 mg/dL (70-110); LDL Cholesterol,Calculated 52.7 mg/dL (0.0-131.0); Potassium 3.8 mmol/L (3.5-5.5); Sodium 133 mmol/L (135-145); Total Bilirubin 0.3 mg/dL (0.3-1.2); Total Protein 6.1 g/dL (6.2-8.2)
== END | disposition home or self-care (01) ==
LOC: LABWHC1 11:20
PROVIDERS: ATTEND Internal Medicine Endocrinology, Diabetes & Metabolism
DX: E11.65 Type 2 diabetes mellitus with hyperglycemia (principal)
CPT/HCPCS: 36415; 80053; 80061; 82043; 82570; 83036; 84443

== ENCOUNTER → 2024-05-01 | Outpatient (CLI) | payer MEDICARE ==
[2024-05-01 11:45] VITALS: BP 136/79; PULSE 85; RESP 16; TEMP 97.5
--- NOTE | 2024-05-01 12:35 | P.PROGSL ---
Subjective DATE: 05/01/2024 FOLLOW UP VISIT. Patient with obstructive sleep apnea hypopnea syndrome return to sleep center for follow-up visit. Information from previous visit have been reviewed. Patient is using PAP equipment every night for the whole night, getting PAP supplies in time. The patient does not have significant problems with the mask, PAP unit and humidification. [place] sleepiness scale is 1. I checked information from PAP unit. PAP unit pressure 5-13, average 10.2 cm H2O. Usage is 100% for more then 4 hours, average 8.9 hours per night. Leak is increased to 35 l/m. Apnea Hypopnea Index is 0.9, which is normal. MEDICATIONS have been reviewed, please see below. During physical exam: GENERAL: A pleasant patient without any distress. VITAL SIGNS: Please see below, weight is 183 lbs. HEENT: PERRLA, EOMI.low position of soft palate, Mallapati 4 . NECK: Supple. No JVD. LUNGS: Clear to percussion and to auscultation. Good air exchange. No wheezing or rhonchi. HEART: S1, S2 regular. ABDOMEN: Soft and nontender.[] EXTREMITIES: No clubbing or cyanosis. HELICOPTER PILOT: Awake, alert, and oriented x3. No focal deficit. Impressions: 1. Obstructive sleep apnea-hypopnea syndrome. Patient demonstrated great compliance with treatment, benefiting from treatment. 2. Mild obesity, patient lost 27 pounds comparing with previous visit, present body mass index 31.2. 3. Hypertension. 4. Diabetes mellitus. 5. Acid reflux. 6. Status post surgical treatment for bladder cancer. 7. History of spinal stenosis. 8. Multiple allergies. 9. History of arthritis. 10. Status post neck surgery in 2019. 11. Status post hysterectomy. 12. Status post cholecystectomy. Plan: 1. Continue using PAP equipment every night for the whole night. 2. Sleep hygiene with regular time in bed for at least 7.5-8 hours 3. PAP unit should stay lower then position of the head. 4. Advised patient to remove all remaining water from humidifier canister daily and make it dry after each usage. Refill canister with fresh distilled water before each usage. 5. Watching and continue losing weight. 6. Precautions related to driving. No driving if feel any sleepiness. 7. I will maintain prescription for PAP supplies including mask, tube, filters. 8. Follow up visit in 6 months or earlier if patient has any problems. Thank you very much for allowing me to participate in the management of your patient. Rohan Simmons MD, PhD, FAASM. Diplomat of [place] [employer] Sleep Medicine, Sleep Medicine Board by [employer] Medicine Pantograph I Engraver of [facility] [place] cc: Reinier Napier DO Objective - Vital Signs Vital Signs: Vital Signs Temp 97.5 F L 05/01/24 11:41 Pulse 85 05/01/24 11:41 Resp 16 05/01/24 11:41 BP 136/79 05/01/24 11:41 Pulse Ox 95 05/01/24 11:41 FiO2 Intake & Output 04/30/24 05/01/24 05/01/24 18:59 06:59 18:59 Weight 83.007 kg Home Medications: Home Medications Medication Instructions Recorded Confirmed Type Insulin Glargine [Lantus Vial] 65 unit SQ BID 03/07/16 05/13/20 History Levothyroxine Sodium [Synthroid] 137 mg PO DAILY 03/07/16 05/01/24 History Multivit with Calcium,Iron,Min 1 each PO DAILY 03/07/16 05/01/24 History [Women's Daily Multivitamin] Pravastatin Sodium [Pravachol] 20 mg PO DAILY 03/07/16 05/01/24 History metFORMIN HCL [Glucophage] 1,000 mg PO BID 03/07/16 05/01/24 History Aspirin [[place] Aspirin EC] 81 mg PO DAILY 05/07/20 05/01/24 History Ergocalciferol [Vitamin D2 50,000 unit PO COLLAZO 05/07/20 05/13/20 History (DRISDOL)] Fluticasone Propion/Salmeterol 1 inhalation PO BID 05/07/20 05/13/20 History [Advair 250-50 Diskus] Furosemide [Lasix] 20 mg PO DAILY 05/07/20 05/13/20 History Ibuprofen 800 mg PO BID 05/07/20 05/13/20 History Loratadine [Claritin] 10 mg PO DAILY 05/07/20 05/01/24 History Losartan/Hydrochlorothiazide 1 tab PO DAILY 05/07/20 05/13/20 History [Losartan-Hctz 100-25 mg Tab] Omeprazole [PriLOSEC] 20 mg PO DAILY 05/07/20 05/01/24 History amLODIPine [Norvasc] 5 mg PO QAM 05/07/20 05/13/20 History guaiFENesin [Mucinex] 600 mg PO BID 05/07/20 05/01/24 History Benzocaine/Menthol Lozeng [Cepacol 1 each MUCOUS MEM Q4HR PRN lozenge 05/14/20 Rx lozenge] HYDROcodone/APAP 5-325MG [[place] 5] 1 each PO Q4HR PRN #42 tab 05/14/20 Rx Pioglitazone HCl 30 mg PO DAILY 05/01/24 05/01/24 History Semaglutide [Ozempic] 2 mg SQ WEEKLY 05/01/24 05/01/24 History carvediloL [Carvedilol] 25 mg PO BID 05/01/24 05/01/24 History hydrALAZINE HCL 50 mg PO DAILY 05/01/24 05/01/24 History traZODone HCL 100 mg PO DAILY 05/01/24 05/01/24 History
== END ==
LOC: 3 N SLEEP 11:16
PROVIDERS: ATTEND Internal Medicine
DX: G47.33 Obstructive sleep apnea (adult) (pediatric) (principal); E66.9 Obesity, unspecified; I10 Essential (primary) hypertension; E11.9 Type 2 diabetes mellitus without complications; K21.9 Gastro-esophageal reflux disease without esophagitis; Z98.890 Other specified postprocedural states; Z85.51 Personal history of malignant neoplasm of bladder; Z87.39 Personal history of other diseases of the musculoskeletal system and connective tissue; Z90.710 Acquired absence of both cervix and uterus; Z90.49 Acquired absence of other specified parts of digestive tract; Z99.89 Dependence on other enabling machines and devices; Z79.899 Other long term (current) drug therapy; Z79.85 Long-term (current) use of injectable non-insulin antidiabetic drugs; Z79.84 Long term (current) use of oral hypoglycemic drugs; Z79.4 Long term (current) use of insulin; Z88.1 Allergy status to other antibiotic agents; Z88.2 Allergy status to sulfonamides; Z87.891 Personal history of nicotine dependence; Z68.31 Body mass index [BMI] 31.0-31.9, adult
CPT/HCPCS: 99212

== ENCOUNTER → 2024-12-12 | Outpatient (CLI) | payer MEDICARE ==
[2024-12-12 17:05] VITALS: BP 135/76; PULSE 80; RESP 16; TEMP 97.8
--- NOTE | 2024-12-12 17:44 | P.PROGSL ---
Subjective DATE: 12/12/2024 FOLLOW UP VISIT. Patient with obstructive sleep apnea hypopnea syndrome return to sleep center for follow-up visit. Information from previous visit have been reviewed. Patient is using PAP equipment every night for the whole night, getting PAP supplies in time. Several days ago CPAP unit will start. [place] sleepiness scale is 1, which is perfect. I checked information from PAP unit. PAP unit pressure 5-13, average 11.1 cm H2O. Usage is 90% for more then 4 hours, average 8.7 hours per night. Leak is 25 l/m, which is in acceptable range. Apnea Hypopnea Index is 0.8, which is normal. Patient slept several nights without CPAP. She slept well. Patient lost about 129 pounds since her original sleep study. MEDICATIONS have been reviewed, please see below. During physical exam: GENERAL: A pleasant patient without any distress. VITAL SIGNS: Please see below, weight is 174.0 lbs. HEENT: PERRLA, EOMI.low position of soft palate, Mallapati 4 . NECK: Supple. No JVD. LUNGS: Clear to percussion and to auscultation. Good air exchange. No wheezing or rhonchi. HEART: S1, S2 regular. ABDOMEN: Soft and nontender.[] EXTREMITIES: No clubbing or cyanosis. ENTRY SPECIALIST: Awake, alert, and oriented x3. No focal deficit. Impressions: 1. Obstructive sleep apnea-hypopnea syndrome. Patient demonstrated great compliance with treatment, benefiting from treatment. 2. Overweight, BMI 29.8, patient lost 129 pounds since her original sleep study. 3. Hypertension. 4. Diabetes mellitus. 5. Acid reflux. 6. Status post surgical treatment for bladder cancer. 7. History of spinal stenosis. 8. Multiple allergies. 9. History of arthritis. 10. Status post neck surgery in 2019. 11. Status post cholecystectomy. 12. Status post hysterectomy. Plan: 1. Continue using PAP equipment every night for the whole night. 2. Polysomnogram for evaluation of patient breathing at the present time after significant losing weight. 3. Following plan after reading sleep study. Patient continued to have abnormalities of respiration we may consider to get patient new CPAP unit. 4. Advised patient to remove all remaining water from humidifier canister daily and make it dry after each usage. Refill canister with fresh distilled water before each usage. 5. Watching weight. 6. Precautions related to driving. No driving if feel any sleepiness. 7. I will maintain prescription for PAP supplies including mask, tube, filters. Thank you very much for allowing me to participate in the management of your patient. Rohan Simmons MD, PhD, FAASM. Diplomat of [employer], Sleep Medicine Board by [employer] Engagement Liaison of [facility] [place] Objective - Vital Signs Vital Signs: Vital Signs Temp 97.8 F 12/12/24 17:00 Pulse 80 12/12/24 17:00 Resp 16 12/12/24 17:00 BP 135/76 12/12/24 17:00 Pulse Ox 96 12/12/24 17:00 FiO2 Intake & Output 12/11/24 12/12/24 12/12/24 18:59 06:59 18:59 Weight 78.925 kg Home Medications: Home Medications Medication Instructions Recorded Confirmed Type Insulin Glargine (Lantus) [Lantus 65 unit SQ BID 03/07/16 05/13/20 History Vial] Levothyroxine Sodium [Synthroid] 137 mg PO DAILY 03/07/16 12/12/24 History Multivit with Calcium,Iron,Min 1 each PO DAILY 03/07/16 05/01/24 History [Women's Daily Multivitamin] Pravastatin Sodium [Pravachol] 20 mg PO DAILY 03/07/16 12/12/24 History metFORMIN HCL [Glucophage] 1,000 mg PO BID 03/07/16 12/12/24 History Aspirin [Scott Aspirin EC] 81 mg PO DAILY 05/07/20 05/01/24 History Ergocalciferol [Vitamin D2 50,000 unit PO COLLAZO 05/07/20 05/13/20 History (DRISDOL)] Fluticasone Propion/Salmeterol 1 inhalation PO BID 05/07/20 05/13/20 History [Advair 250-50 Diskus] Furosemide [Lasix] 20 mg PO DAILY 05/07/20 05/13/20 History Ibuprofen 800 mg PO BID 05/07/20 05/13/20 History Loratadine [Claritin] 10 mg PO DAILY 05/07/20 05/01/24 History Losartan/Hydrochlorothiazide 1 tab PO DAILY 05/07/20 05/13/20 History [Losartan-Hctz 100-25 mg Tab] Omeprazole [PriLOSEC] 20 mg PO DAILY 05/07/20 12/12/24 History amLODIPine [Norvasc] 5 mg PO QAM 05/07/20 05/13/20 History guaiFENesin [Mucinex] 600 mg PO BID 05/07/20 05/01/24 History Benzocaine/Menthol Lozeng [Cepacol 1 each MUCOUS MEM Q4HR PRN lozenge 05/14/20 Rx lozenge] HYDROcodone/APAP 5-325MG [Sapphire 5] 1 each PO Q4HR PRN #42 tab 05/14/20 Rx Pioglitazone HCl 30 mg PO DAILY 05/01/24 12/12/24 History Semaglutide [Ozempic] 2 mg SQ WEEKLY 05/01/24 12/12/24 History carvediloL [Carvedilol] 25 mg PO BID 05/01/24 12/12/24 History hydrALAZINE HCL 50 mg PO DAILY 05/01/24 12/12/24 History traZODone HCL 100 mg PO DAILY 05/01/24 12/12/24 History
== END ==
LOC: 3 N SLEEP 16:22
PROVIDERS: ATTEND Internal Medicine
DX: E11.9 Type 2 diabetes mellitus without complications (principal); G47.33 Obstructive sleep apnea (adult) (pediatric); E66.3 Overweight; K21.9 Gastro-esophageal reflux disease without esophagitis; I10 Essential (primary) hypertension; Z68.29 Body mass index [BMI] 29.0-29.9, adult; Z85.51 Personal history of malignant neoplasm of bladder; Z87.39 Personal history of other diseases of the musculoskeletal system and connective tissue; Z90.49 Acquired absence of other specified parts of digestive tract; Z90.710 Acquired absence of both cervix and uterus; Z98.890 Other specified postprocedural states; Z88.2 Allergy status to sulfonamides; Z88.1 Allergy status to other antibiotic agents; Z87.891 Personal history of nicotine dependence
CPT/HCPCS: 99212

== ENCOUNTER 2025-01-15 19:35 | Outpatient (CLI) | payer MEDICARE ==
--- NOTE | 2025-01-23 12:36 | P.PCN ---
Description of Procedure: POLYSOMNOGRAPHY REPORT PROCEDURE(S)/DATE(S): Polysomnography 01/15/2025 CLINICAL: Patient has been seen in the sleep center for evaluation of obstructive sleep apnea-hypopnea syndrome. Please see my consultation. Sleep study has been done for evaluation of patient breathing during the sleep. PROCEDURE: The standard montage for clinical polysomnography included the electroencephalogram, the electrooculogram, the mentalis surface electromyography and Lead II cardiography. The respiratory battery consisted of measurements of nasal/buccal air flow, pressure transducer measurements from nose, thoracic and/or abdominal effort and intercostal surface electromyography. Video monitoring has been done to check for any parasomnia events. Nocturnal oxyhemoglobin saturations were obtained by finger oximetry. Step-sparks titration with positive airway pressure was utilized to control the respiratory events, if necessary. RESULTS: During the diagnostic sleep study sleep efficiency was decreased to 76.6%. Latency to sleep onset was significantly prolonged to 50.5 min. Sleep architecture showed stage NI was normal 8.8%, Delta sleep was absent 0%, REM sleep was short 11.3%. Respiratory channel showed 0 obstructive apneas, 0 mixed apneas, 0 central apneas, 2 hypopneas with lowest oxygen level 89%. Total apnea hypopnea index was 0.4. Heart rate was in the range between 69 and 77, average 72. EMG showed 19.9 periodic limb movements per hour with 1.7 micro-arousals per hour. IMPRESSIONS: 1. No significant respiratory abnormalities have been documented during the sleep study. Normal oxygenation during sleep. 2. Significant periodic limb movements have been documented 19.9 times per hour. Please see other impressions from consultation PLAN: 1. I will see patient in follow-up visit to explain results of the test and recommendations. 2. Losing weight program. 3. Sleep hygiene with regular time in bed for at least 7-1/2 hours. 4. No driving if feeling sleepiness. 5. Please check iron profile including ferritin level. Low level of iron may increase the risk for periodic limb movements. Thank you very much for allowing me to participate in the management of your patient. Sincerely, Rohan Simmons MD, PhD, FAASM. Diplomat of [employer], Sleep Medicine Board by [employer] Demo Coordinator of [facility] [place] cc: Reinier Napier DO
== END 2025-01-16 05:00 | disposition home or self-care (01) ==
LOC: 3 N SLEEP 19:35
PROVIDERS: ATTEND Internal Medicine
DX: G47.33 Obstructive sleep apnea (adult) (pediatric) (principal); G47.61 Periodic limb movement disorder; Z88.1 Allergy status to other antibiotic agents; Z88.2 Allergy status to sulfonamides; Z87.891 Personal history of nicotine dependence
CPT/HCPCS: 95810

== ENCOUNTER → 2025-04-22 | Outpatient (CLI) | payer MEDICARE ==
--- NOTE | 2025-04-22 12:05 | MM ---
Reason for Exam: Screening (asymptomatic). Last mammogram was performed 6 year(s) and 1 month(s) ago. Patient History: Menarche at age 11. First Full-Term at age 26. Left ovary removed at age 41. Right ovary removed at age 41. Hysterectomy at age 41. Postmenopausal. Other cancer, age 53. Patient used Hormonal Contraceptives for 3 years. Maternal aunt had breast cancer. Risk Values: Kristy 5 year model risk: 1.9%. NCI Lifetime model risk: 5.6%. Prior Study Comparison: 07/16/2015 Screening Mammogram, Unknown. 03/25/2019 Bilateral Screening Mammogram, [facility]. Tissue Density: The breasts are almost entirely fatty. Findings: Analyzed By CAD. Right breast: There is no suspicious group of microcalcifications or new suspicious mass. Left breast: There is no suspicious group of microcalcifications or new suspicious mass. Overall Assessment: Negative, BI-RAD 1 Management: Screening Mammogram of both breasts in [address] [facility] will attempt to contact patient to return for supplemental views and ultrasound if indicated. Patient should continue monthly self-breast exams. A clinical breast exam by your physician is recommended on an annual basis. This exam should not preclude additional follow-up of suspicious palpable abnormalities. Note on Kristy scores and lifetime risk: 1. A Kristy score greater than 3% is considered moderate risk. If this is the case, consider specialist referral to assess eligibility for a risk reducing agent. 2. If overall lifetime risk for the development of breast cancer is 20% or higher, the patient may qualify for future screening with alternating mammogram and breast MRI. [facility], , 04/22/2025 12:02 PM. Electronically signed and approved by: Corey Sandoval DO
== END | disposition home or self-care (01) ==
LOC: RADMAMWWP 10:36
DX: Z12.31 Encounter for screening mammogram for malignant neoplasm of breast (principal); R92.313 Mammographic fatty tissue density, bilateral breasts; Z78.0 Asymptomatic menopausal state; Z80.3 Family history of malignant neoplasm of breast
CPT/HCPCS: 77063; 77067